=== PATIENT | male | born 1975 | race Caucasian/White ===

== ENCOUNTER 2017-08-09 00:16 | Emergency (ER) | payer MEDICARE ==
[2017-08-09 01:37] LABS: #Eosinphils 0.7 thou/uL (0.0-0.7); #Lymphocytes 1.5 thou/uL (1.20-3.40); #Monocytes 0.7 thou/uL (0.11-0.59); #Neutrophils 5.4 thou/uL (1.40-6.50); %Basophils 0.2 % (0.0-1.0); %Eosinophils 8.9 % (0.0-10.0); %Lymphocytes 18.5 % (21.0-51.0); %Neutrophils 64.4 % (42.0-75.0); Hemoglobin 8.6 g/dL (14.0-18.0); Mean Corpuscular Hemoglobin 21.1 pg (27.0-31.0); Mean Corpuscular Volume 72.7 fl (80.0-94.0); Mean Platelet Volume 10.8 fL (7.4-10.4); Platelet Count 222 thou/uL (130-400); Red Blood Cell (RBC) Count 4.07 mill/uL (4.70-6.10); White Blood Cell (WBC) Count 8.3 thou/uL (4.8-10.8)
[2017-08-09 01:41] LABS: INR-International Normal Ratio 1.6; Prothrombin Time 19.9 SEC (12.0-14.7)
[2017-08-09 01:52] LABS: ALT (SGPT) Less than 7 U/L (8-55); AST (SGOT) 14 U/L (5-34); Alkaline Phosphatase 66 U/L (40-150); Anion Gap 9 mmol/L (10-20); BUN (Urea Nitrogen) 11 mg/dL (8.9-20.6); Bilirubin, Total 0.3 mg/dL (0.2-1.2); CK (CPK) 24 U/L (30-200); Calc. Creatinine Clearance 0 mL/min (70-130); Carbon Dioxide 30 mmol/L (22-29); Chloride 100 mmol/L (98-107); Estimated GFR-MDRD Greater than 90; Globulin 4.6 g/dL (2.4-3.5); Glucose 209 mg/dL (70-105); Potassium 3.7 mmol/L (3.5-5.1); Protein, Total 7.6 g/dL (6.0-8.3); Sodium 135 mmol/L (136-145)
[2017-08-09 01:55] LABS: CKMB 0.3 ng/mL (0-6.6); Troponin I Less than 0.010 ng/mL (< 0.028)
[2017-08-09] MEDS ORDERED: Warfarin Sodium 5 MG TAB PO SCH (02:15)
--- NOTE | 2017-08-09 08:24 | RAD ---
CHEST 1 VIEW: Date: 08/09/17 HISTORY: 41-year-old male with history of dyspnea and congestion. FINDINGS: Heart size is at least upper range of normal. Bronchovascular markings are slightly prominent bilater ally with some mild vascular congestion. No confluent pneumonia, pleural effusion, or overt edema. Li ttle change from most recent prior study of 08/21/16. IMPRESSION: Bilateral vascular congestion with borderline heart size. No confluent pneumonia or overt edema. POS: [facility]
== END 2017-08-09 03:22 | disposition home or self-care (01) ==
LOC: ERS 00:16
DX: R09.89 Other specified symptoms and signs involving the circulatory and respiratory systems (principal); E66.01 Morbid (severe) obesity due to excess calories; E11.9 Type 2 diabetes mellitus without complications; I10 Essential (primary) hypertension; Z86.711 Personal history of pulmonary embolism; I87.8 Other specified disorders of veins; G47.30 Sleep apnea, unspecified; Z79.01 Long term (current) use of anticoagulants; Z79.84 Long term (current) use of oral hypoglycemic drugs; Z79.899 Other long term (current) drug therapy
CPT/HCPCS: 71045; 80053; 82553; 83880; 84484; 85025; 85610; 85730; 93005

== ENCOUNTER 2017-08-31 19:50 | Inpatient (IN) | payer MEDICARE ==
[2017-08-31 20:26] LABS: #Eosinphils 0.7 thou/uL (0.0-0.7); #Lymphocytes 1.3 thou/uL (1.20-3.40); #Monocytes 1.2 thou/uL (0.11-0.59); #Neutrophils 7.8 thou/uL (1.40-6.50); %Basophils 0.3 % (0.0-1.0); %Lymphocytes 11.7 % (21.0-51.0); Hemoglobin 8.6 g/dL (14.0-18.0); Mean Corpuscular HGB CONC 30.7 g/dL (32.0-36.0); Mean Corpuscular Hemoglobin 21.5 pg (27.0-31.0); Mean Corpuscular Volume 70.1 fL (78.0-98.0); Mean Platelet Volume 10.5 fL (7.4-10.4); Platelet Count 238 thou/uL (130-400); RBC Distribution Width 17.2 % (11.5-14.5); Red Blood Cell (RBC) Count 3.99 mill/uL (4.70-6.10)
--- NOTE | 2017-08-31 20:30 | RAD ---
PORTABLE CHEST ONE VIEW: Date: 08-31-17 Time: 8:21 p.m. History: Fever, dizziness, lightheadedness. FINDINGS/IMPRESSION: Comparison is made with exam of 08-09-17. The heart is enlarged. There is mild pulmonary vascular congestion. No lobar consolidation, pneumotho races or large effusions are seen. POS: [facility]
[2017-08-31] MEDS ORDERED: Piperacillin/Tazobactam 4.5 GM VIAL ONE (20:33)
[2017-08-31 20:45] LABS: ALT (SGPT) 10 U/L (8-55); AST (SGOT) 17 U/L (5-34); Albumin 3.1 g/dL (3.5-5.0); Alkaline Phosphatase 66 U/L (40-150); Anion Gap 13 mmol/L (10-20); BUN (Urea Nitrogen) 11 mg/dL (8.9-20.6); Bilirubin, Total 0.4 mg/dL (0.2-1.2); Calc. Creatinine Clearance 0 mL/min (70-130); Calcium 8.8 mg/dL (7.8-10.44); Carbon Dioxide 28 mmol/L (22-29); Chloride 95 mmol/L (98-107); Estimated GFR-MDRD Greater than 90; Globulin 5.5 g/dL (2.4-3.5); Glucose 262 mg/dL (70-105); Potassium 3.9 mmol/L (3.5-5.1); Protein, Total 8.6 g/dL (6.0-8.3); Sodium 132 mmol/L (136-145)
[2017-08-31 21:54] LABS: Bilirubin Negative (Negative); Blood, Urine Negative (Negative); Clarity TURBID (Clear); Glucose, Urine (Dipstick) Negative (Negative); Leukocyte Small (Negative); Nitrite Negative (Negative); Protein, Urine (Dipstick) Trace mg/dL (Neg-Trace); Specific Gravity, Urine 1.024 (1.002-1.036)
[2017-08-31 21:55] LABS: Bacteria/HPF None Seen HPF (None Seen); Hyaline Casts/LPF 0-3 HYALINE CAST LPF (0-3 Hyaline); Pathc Cast-AUWi Flag 0.29 (0-2.49); Squamous Epithelial 0-3 HPF (0-3)
[2017-09-01 00:13] LABS: Lactic Acid 1.2 mmol/L (0.5-2.2)
[2017-09-01 00:44] VITALS: BMI 82.3
[2017-09-01] MEDS ORDERED: Sodium Chloride 0.9% 1,000 ML IV SCH (00:45)
[2017-09-01] MEDS ORDERED: Dextrose 50% Abboject 50 ML SYRINGE SLOW IVP PRN ×2 (01:04→13:56)
[2017-09-01] MEDS ORDERED: Dextrose 5% in Water 1,000 ML IV PRN ×2 (01:04→13:56)
[2017-09-01] MEDS ORDERED: Ondansetron HCl/PF 4 MG/2 ML Vial IVP PRN (01:11)
[2017-09-01] MEDS ORDERED: Acetaminophen 325 MG TAB PO PRN (01:11)
[2017-09-01] MEDS ORDERED: HYDROcodone/Acetaminophen 10/325 mg Tablet PO PRN (01:11)
[2017-09-01] MEDS ORDERED: Ondansetron ODT 4 MG TAB PO PRN (01:11)
[2017-09-01] MEDS: Sodium Chloride 0.9% 1,000 ML IV SCH ×4 (01:25→22:20)
--- NOTE | 2017-09-01 01:32 | PDOC.FPRHP ---
- History of Present Illness Chief Complaint: RLE pain, fever History of Present Illness: 42 yo morbidly obese male with PMH of DMII, HTN, SHAAN on CPAP, OHS, lymphedema and prior DVT on coumadin presents for evaluation of fever on and off for the last 4 days with a high of 102 degress farenheit with associated worsening pain and erythema of RLE. Pt reports he had a fever that has been fluctuating between 101-102 over the last four days. He denies any other symptoms aside from b/l LE pain and associated erythema of RLE. Pt denies cp, sob, nvdc. Does report ough which he states is chronic and unchanged. ED Course: vancomycin 1 gram, zosyn 4.5 grams - Allergies/Adverse Reactions Allergies Allergy/AdvReac Type Severity Reaction Status Date / Time No Known Drug Allergies Allergy Unknown Verified 08/14/14 15:10 - Home Medications Medication Instructions Recorded Confirmed Type HYDROcodone Bit/APAP 10/325 [[place]] 1 tab PO Q6HR PRN 09/11/12 09/01/17 History metFORMIN [Glucophage] 1,000 mg PO BID-WM 09/11/12 09/01/17 History Pravastatin Sodium [Pravachol] 20 mg PO HS 08/14/14 09/01/17 History Acetaminophen [Tylenol Extra 500 mg PO 1200 09/01/17 09/01/17 History Strength] Acetaminophen [Tylenol Extra 500 mg PO QAM 09/01/17 09/01/17 History Strength] Cetirizine HCl [Zyrtec] 10 mg PO DAILY 09/01/17 09/01/17 History Furosemide [Lasix] 40 mg PO BID 09/01/17 09/01/17 History Gabapentin 1,200 mg PO TID 09/01/17 09/01/17 History Lisinopril 40 mg PO DAILY 09/01/17 09/01/17 History Pantoprazole [Protonix] 40 mg PO DAILY 09/01/17 09/01/17 History Warfarin Sodium 7.5 mg PO SEEPHYS 09/01/17 09/01/17 History Warfarin Sodium 10 mg PO SEEPHYS 09/01/17 09/01/17 History guaiFENesin [Cough Syrup] 10 ml PO Q4HR PRN 09/01/17 09/01/17 History - History PMHx: htn, DMII, SHAAN on cpap QHS, OHS, lymphedema, morbid obesity PSHx: None FHx:none Social: Denies tobacco, alcohol and drug use - Review of Systems General: reports: fever/chills. denies: weight/appetite/sleep changes, night sweats, fatigue Eyes: denies: vision changes ENT: reports: nasal congestion. denies: rhinorrhea Respiratory: reports: cough. denies: congestion, shortness of breath Cardiovascular: reports: edema. denies: chest pain, palpitation Gastrointestinal: denies: nausea, vomiting, diarrhea, constipation, abdominal pain Genitourinary: denies: incontinence, dysuria Skin: reports: itching, other (excoriations over trunk) Musculoskeletal: reports: swelling. denies: tenderness, arthritis/arthralgias Neurological: denies: numbness, syncope, weakness - Vital signs BP: 132/68 HR: 92 RR: 24 Tmax: 100.5 Pox: 98% on RA Wt: 295Kg - Physical Exam Constitutional: NAD, awake, alert and oriented, other (Morbidly obese) HEENT: normocephalic and atraumatic, PERRLA, EOMI, conjunctiva clear, no scleral icterus, grossly normal vision, grossly normal hearing Neck: supple, trachea midline, no JVD Chest: no-tender to palpation, other (excoriations over anterior chest and abdomen) Heart: RRR, normal S1/S2, pulses present, no edema (non pitting edema b/l LE), other (SURY 2/6) Lungs: CTAB, no respiratory distress, good air movement, no rales/rhonchi, no wheezing, no retractions Abdomen: soft, non-tender, bowel sounds present, no masses/distention Musculoskeletal: normal structure, normal tone Neurological: no focal deficit Skin: good turgor, capillary refill <2 seconds, no jaundice, other ( excoriations covering anterior trunk and upper extremities) Heme/Lymphatic: no unusual bruising or bleeding, no purpura, no petechia Psychiatric: normal mood and affect FMR H&P: Results - Labs Result Diagrams: 09/01/17 03:52 09/01/17 03:52 Lab results: WBC 11.0 thou/uL (4.8-10.8) H 08/31/17 20:07 Hgb 8.6 g/dL (14.0-18.0) L 08/31/17 20:07 Hct 28.0 % (42.0-52.0) L 08/31/17 20:07 MCV 70.1 fL (78.0-98.0) L 08/31/17 20:07 Plt Count 238 thou/uL (130-400) 08/31/17 20:07 Neutrophils % 71.0 % (42.0-75.0) 08/31/17 20:07 Sodium 132 mmol/L (136-145) L 08/31/17 20:07 Potassium 3.9 mmol/L (3.5-5.1) 08/31/17 20:07 Chloride 95 mmol/L (98-107) L 08/31/17 20:07 Carbon Dioxide 28 mmol/L (22-29) 08/31/17 20:07 BUN 11 mg/dL (8.9-20.6) 08/31/17 20:07 Creatinine 0.78 mg/dL (0.6-1.3) 08/31/17 20:07 Glucose 262 mg/dL (70-105) H 08/31/17 20:07 Lactic Acid 1.2 mmol/L (0.5-2.2) 08/31/17 23:51 Calcium 8.8 mg/dL (7.8-10.44) 08/31/17 20:07 Total Bilirubin 0.4 mg/dL (0.2-1.2) 08/31/17 20:07 AST 17 U/L (5-34) 08/31/17 20:07 ALT 10 U/L (8-55) 08/31/17 20:07 Alkaline Phosphatase 66 U/L (40-150) 08/31/17 20:07 Serum Total Protein 8.6 g/dL (6.0-8.3) H 08/31/17 20:07 Albumin 3.1 g/dL (3.5-5.0) L 08/31/17 20:07 Urine Ketones Negative mg/dL (Negative) 08/31/17 21:41 Urine Blood Negative (Negative) 08/31/17 21:41 Urine Nitrite Negative (Negative) 08/31/17 21:41 Ur Leukocyte Esterase Small (Negative) H 06/24/18 21:41 Urine RBC 4-6 HPF (0-3) 08/31/17 21:41 Urine WBC 4-6 HPF (0-3) H 08/31/17 21:41 Ur Squamous Epith Cells 0-3 HPF (0-3) 08/31/17 21:41 Urine Bacteria None Seen HPF (None Seen) 08/31/17 21:41 - EKG Interpretation EKG: NSR rate 100 - Radiology Interpretation Chest x-ray Status: report reviewed by me (enlarged heart) FMR H&P: A/P - Plan 1.Cellulitis -admit medical and continue broad spectrum abx, erythema edges marked and continue to monitor -am cbc and bmp 2.SHAAN -cont CPAP qhs per home setting in addition to nightly O2 3. DM II- home meds 4.Hx of PE- continue home Coumadin, check coags 5.Microcytic anemia- slowly worsening trend, will obtain iron studies 6.Htn- home meds 7. Lymphedema-lasix 40 BID 8.Hld-home statin 9.Chronic pain-will not give full dosages of his narcotics while he doesn't have his CPAP as he has hx of acute resp. failure 10.Morbid obesity-PT/OT consulted, has HH at home 11.DVT ppx-on coumadin 12: Code status full, discussed with pt at bedside Disposition/LOS: stable, >/= 2 days FMR H&P: Upper Level - Plan Date/Time: 09/01/17 0126 PCP: Chrissy Pt is a 42 yo M w/ PMH of morbid obesity, DM II, PE, SHAAN, htn who presents to ED with several day hx of leg pain and fever. Reports dizziness, productive cough (which has been ongoing for 6 mo-1 yr) and LLE pain worsening. Leg does appear red and family has marked the edges, does not appear to have spread. He also has a lot of excoriations all over his body from skin picking. He has a fever of 100.5 currently in ED and was higher around 102 when he came in. Has been trying to take Tylenol at home for fever which hasnt kept it down. Reportedly lives in an un-air conditioned home and was feeling cool when they took his temp several days ago but the leg pain hadnt started. Denies any other source of increased body pain, suffers from chronic pain related to obesity and takes norco. General: AOx3, morbidly obese, appears in no acute distress, appropriately dressed, groomed, appears approximate stated age HEENT: moist mucus membranes, no pharyngeal edema Cardiac: RRR, no murmurs, gallops, clicks or rubs Lungs: CTA, no wheezes, rales, rubs, rhonchi Abdomen: soft, non TTP, normoactive bs, Extremities: 1. Cellulitis- admit, medical, vanc an zosyn, will cover for pseudomonas as he is a diabetic, he is a high risk for infection with excoriations all over this body from skin picking, leg is the most likely source given appearance of the leg. Does have known hx of lymphedema of the legs and takes lasix which was recently doubled. 2. SHAAN- wears nightly O2 and forgot home CPAP, will see if RT will titrate and to bring tomorrow. He is very somnolent w/o his CPAP in the mornings 3. DM II- home meds, on metformin, reported last A1c around 7 4. Hx of PE- continue home Coumadin, check coags 5. Microcytic anemia- slowly worsening trend, will obtain iron studies 6. Htn- home meds 7. Lymphedema- as above 8. Hld-home statin 9. Chronic pain-will not give full dosages of his narcotics while he doesn't have his CPAP as he has hx of acute resp. failure 10. Morbid obesity-PT/OT consulted, has HH at home 8. DVT ppx-on coumadin I, Es Enriquez, have evaluated this patient and agree with findings/plan as outlined by Dr. Bocanegra. Pertinent changes/additions are listed here. Attending Addendum - Attending Addendum Date/Time: 09/01/17 3761 I personally evaluated the patient and discussed the management with Dr. Bocanegra. I agree with the History, Examination, Assessment and Plan documented above with any addition or exceptions noted below. Patient is admitted for cellulitis with SIRS for IV antibiotic coverage. Has several other chronic conditions including warfarin therapy which is subtherapeutic. Dose recently adjusted. Although he carreis diagosis of lymphedema, it is unclear how this was diagnosed or what is causing it. My examination of is legs is consistent with choric venous stasis and obesity as well as the acaute cellulitis.
--- NOTE | 2017-09-01 01:35 | PDOC.FPRHP ---
- Allergies/Adverse Reactions Allergies Allergy/AdvReac Type Severity Reaction Status Date / Time No Known Drug Allergies Allergy Unknown Verified 08/14/14 15:10 - Home Medications Medication Instructions Recorded Confirmed Type HYDROcodone Bit/APAP 10/325 [[place]] 1 tab PO Q6HR PRN 09/11/12 08/21/16 History metFORMIN [Glucophage] 1,000 mg PO BID-WM 09/11/12 08/21/16 History Omeprazole 20 mg PO DAILY 02/25/13 08/21/16 History Amlodipine Besylate [amLODIPine 10 mg PO DAILY 08/14/14 08/21/16 History Besylate] Pravastatin Sodium [Pravachol] 20 mg PO HS 08/14/14 08/21/16 History Lisinopril [Zestril] 5 mg PO DAILY #60 tab 08/24/16 Rx Furosemide [Lasix] 40 mg PO BID 09/01/17 09/01/17 History Warfarin Sodium [Coumadin] 7.5 mg PO SEEPHYS 09/01/17 09/01/17 History - History PMHx: PSHx: FHx: Social: - Vital signs BP: [] HR: [] RR: [] Tmax: [] Pox: []% on [] Wt: [] FMR H&P: Results - Labs Result Diagrams: 08/31/17 20:07 08/31/17 20:07 Lab results: WBC 11.0 thou/uL (4.8-10.8) H 08/31/17 20:07 Hgb 8.6 g/dL (14.0-18.0) L 08/31/17 20:07 Hct 28.0 % (42.0-52.0) L 08/31/17 20:07 MCV 70.1 fL (78.0-98.0) L 08/31/17 20:07 Plt Count 238 thou/uL (130-400) 08/31/17 20:07 Neutrophils % 71.0 % (42.0-75.0) 08/31/17 20:07 Sodium 132 mmol/L (136-145) L 08/31/17 20:07 Potassium 3.9 mmol/L (3.5-5.1) 08/31/17 20:07 Chloride 95 mmol/L (98-107) L 08/31/17 20:07 Carbon Dioxide 28 mmol/L (22-29) 08/31/17 20:07 BUN 11 mg/dL (8.9-20.6) 08/31/17 20:07 Creatinine 0.78 mg/dL (0.6-1.3) 08/31/17 20:07 Glucose 262 mg/dL (70-105) H 08/31/17 20:07 Lactic Acid 1.2 mmol/L (0.5-2.2) 08/31/17 23:51 Calcium 8.8 mg/dL (7.8-10.44) 08/31/17 20:07 Total Bilirubin 0.4 mg/dL (0.2-1.2) 08/31/17 20:07 AST 17 U/L (5-34) 08/31/17 20:07 ALT 10 U/L (8-55) 08/31/17 20:07 Alkaline Phosphatase 66 U/L (40-150) 08/31/17 20:07 Serum Total Protein 8.6 g/dL (6.0-8.3) H 08/31/17 20:07 Albumin 3.1 g/dL (3.5-5.0) L 08/31/17 20:07 Urine Ketones Negative mg/dL (Negative) 08/31/17 21:41 Urine Blood Negative (Negative) 08/31/17 21:41 Urine Nitrite Negative (Negative) 08/31/17 21:41 Ur Leukocyte Esterase Small (Negative) H 08/31/17 21:41 Urine RBC 4-6 HPF (0-3) 08/31/17 21:41 Urine WBC 4-6 HPF (0-3) H 08/31/17 21:41 Ur Squamous Epith Cells 0-3 HPF (0-3) 08/31/17 21:41 Urine Bacteria None Seen HPF (None Seen) 08/31/17 21:41 FMR H&P: Upper Level - Plan Date/Time: 09/01/17 0127 I, [], have evaluated this patient and agree with findings/plan as outlined by regulatory affairs intern resident. Pertinent changes/additions are listed here.
[2017-09-01] MEDS ORDERED: guaiFENesin 100 MG/5 ML UDCUP PO PRN (02:32)
[2017-09-01] MEDS: Diabetic Tussin 200 MG/10 ML UDCUP PO PRN ×4 (02:36→23:22)
[2017-09-01] MEDS ORDERED: Piperacillin/Tazobactam 4.5 GM in Sodium Chloride 0.9% 100 ML IVPB SCH (03:00)
[2017-09-01 05:48] LABS: INR-International Normal Ratio 1.6; PTT 40.4 SEC (22.9-36.1); Prothrombin Time 19.1 SEC (12.0-14.7)
[2017-09-01 05:52] LABS: Anion Gap 13 mmol/L (10-20); BUN (Urea Nitrogen) 10 mg/dL (8.9-20.6); Calc. Creatinine Clearance 572 mL/min (70-130); Calcium 8.7 mg/dL (7.8-10.44); Carbon Dioxide 28 mmol/L (22-29); Chloride 97 mmol/L (98-107); Estimated GFR-MDRD Greater than 90; Glucose 242 mg/dL (70-105); Iron 22 ug/dL (65-175); Iron Binding Capacity, Total 245 mcg/dL (261-462); Potassium 3.9 mmol/L (3.5-5.1); Sodium 134 mmol/L (136-145); Transferrin, Serum 196 mg/dL (174-364)
[2017-09-01 06:45] LABS: #Eosinphils 0.5 thou/uL (0.0-0.7); #Lymphocytes 1.5 thou/uL (1.20-3.40); #Monocytes 1.2 thou/uL (0.11-0.59); #Neutrophils 7.4 thou/uL (1.40-6.50); %Basophils 0.1 % (0.0-1.0); %Eosinophils 4.9 % (0.0-10.0); %Lymphocytes 14.2 % (21.0-51.0); %Monocytes 10.9 % (0.0-10.0); Hemoglobin 8.1 g/dL (14.0-18.0); Mean Corpuscular HGB CONC 29.9 g/dL (32.0-36.0); Mean Corpuscular Hemoglobin 21.5 pg (27.0-31.0); Mean Corpuscular Volume 71.7 fL (78.0-98.0); Mean Platelet Volume 10.7 fL (7.4-10.4); Platelet Count 214 thou/uL (130-400); RBC Distribution Width 17.1 % (11.5-14.5); Red Blood Cell (RBC) Count 3.76 mill/uL (4.70-6.10); White Blood Cell (WBC) Count 10.6 thou/uL (4.8-10.8)
[2017-09-01 06:55] LABS: Anisocytosis SLIGHT = 6-15 cells (100X) (0-5/hpf); Hypochromia SLIGHT = 6-15 cells (100X) (0-5/hpf); MDiff Complete? YES; Microcytosis SLIGHT = 6-15 cells (100X) (0-5/hpf); Polychromasia SLIGHT = 2-3 cells (100X) (0-2/hpf)
[2017-09-01] MEDS ORDERED: Vancomycin HCl 1.5 GM in Sodium Chloride 0.9% 500 ML IVPB SCH (09:00)
[2017-09-01] MEDS ORDERED: Famotidine 20 MG TAB PO SCH (09:00)
[2017-09-01] MEDS: metFORMIN 500 MG TAB PO SCH ×2 (09:18→16:44)
[2017-09-01] MEDS: Loratadine 10 MG TAB PO SCH (09:19)
[2017-09-01] MEDS: Lisinopril 20 MG TAB PO SCH (09:19)
[2017-09-01] MEDS: Furosemide 40 MG TAB PO SCH ×2 (09:19→14:05)
[2017-09-01] MEDS: Gabapentin 400 MG CAP PO SCH ×3 (09:19→20:04)
[2017-09-01] MEDS: Acetaminophen 500 MG TAB PO SCH ×2 (09:19→12:25)
[2017-09-01] MEDS: HYDROcodone/Acetaminophen 10/325 mg Tablet PO PRN ×2 (09:22→20:05)
[2017-09-01] MEDS: Piperacillin/Tazobactam 4.5 GM in Sodium Chloride 0.9% 100 ML IVPB SCH ×3 (12:24→22:17)
[2017-09-01] MEDS ORDERED: Enoxaparin Sodium 120 MG/0.8 ML SYRINGE SC SCH (13:15)
[2017-09-01] MEDS: HumaLOG 300 UNITS/3 ML VIAL SC PRN ×2 (14:05→16:47)
[2017-09-01] MEDS: Nystatin Powder 15 GM BOT TOP PRN (16:45)
[2017-09-01] MEDS ORDERED: Warfarin Sodium 7.5 MG TAB PO SCH (17:00)
[2017-09-01] MEDS: hydrOXYzine 25 MG TAB PO PRN (20:04)
[2017-09-01] MEDS: Pravastatin Sodium 20 MG TAB PO SCH (20:05)
[2017-09-01] MEDS: Enoxaparin Sodium 120 MG/0.8 ML SYRINGE SC SCH (20:06)
[2017-09-01] MEDS: Enoxaparin Sodium 30 MG/0.3 ML SYRINGE SC SCH (20:06)
[2017-09-02] MEDS: Piperacillin/Tazobactam 4.5 GM in Sodium Chloride 0.9% 100 ML IVPB SCH ×4 (05:38→23:52)
[2017-09-02] MEDS: hydrOXYzine 25 MG TAB PO PRN ×2 (05:38→20:28)
[2017-09-02] MEDS: Diabetic Tussin 200 MG/10 ML UDCUP PO PRN ×4 (05:38→21:13)
[2017-09-02] MEDS: HYDROcodone/Acetaminophen 10/325 mg Tablet PO PRN ×4 (05:39→22:21)
[2017-09-02] MEDS: HumaLOG 300 UNITS/3 ML VIAL SC PRN ×3 (05:39→20:30)
[2017-09-02 06:11] LABS: #Eosinphils 0.9 thou/uL (0.0-0.7); #Lymphocytes 1.7 thou/uL (1.20-3.40); #Monocytes 0.7 thou/uL (0.11-0.59); #Neutrophils 6.9 thou/uL (1.40-6.50); %Basophils 0.4 % (0.0-1.0); %Eosinophils 8.4 % (0.0-10.0); %Lymphocytes 16.2 % (21.0-51.0); Hemoglobin 8.5 g/dL (14.0-18.0); Mean Corpuscular HGB CONC 29.5 g/dL (32.0-36.0); Mean Corpuscular Hemoglobin 21.4 pg (27.0-31.0); Mean Corpuscular Volume 72.4 fL (78.0-98.0); Mean Platelet Volume 10.3 fL (7.4-10.4); Platelet Count 208 thou/uL (130-400); RBC Distribution Width 17.4 % (11.5-14.5); White Blood Cell (WBC) Count 10.2 thou/uL (4.8-10.8)
[2017-09-02 06:25] LABS: Anion Gap 12 mmol/L (10-20); BUN (Urea Nitrogen) 8 mg/dL (8.9-20.6); Calc. Creatinine Clearance 557 mL/min (70-130); Calcium 8.9 mg/dL (7.8-10.44); Carbon Dioxide 30 mmol/L (22-29); Chloride 99 mmol/L (98-107); Estimated GFR-MDRD Greater than 90; Glucose 198 mg/dL (70-105); Potassium 4.1 mmol/L (3.5-5.1); Sodium 137 mmol/L (136-145)
[2017-09-02 06:27] LABS: INR-International Normal Ratio 1.6; Prothrombin Time 19.2 SEC (12.0-14.7)
--- NOTE | 2017-09-02 06:59 | PDOC.FM ---
- Subjective Subjective: Mr. Balderas is feeling well this morning. He reports he slept well with CPAP and ate dinner well last night. I spoke to patient extensively yesterday about risks of bleeding with any anticoagulation, particularly with bridging him with lovenox and coumadin. He would prefer to take the risk of spontaneous bleed (we also discussed fall risk) as opposed to increased risk of DVT/PE. I stressed importance of fall precautions but also ongoing risk of spontaneous hemorrhage and he acknowledges and prefers to proceed with anticoagulation. We also discussed inpatient rehab and he plans to discuss further with his this morning in preparation for possible d/c tomorrow. - Objective MAR Reviewed: Yes Vital Signs & Weight: Vital Signs (12 hours) Temp Pulse Resp BP Pulse Ox 09/01/17 20:00 98.5 F 86 20 126/80 97 09/01/17 19:45 98.5 F 86 20 97 I&O: 08/31/17 09/01/17 09/02/17 06:59 06:59 06:59 Intake Total 1218 6893 Output Total 6550 Balance 1218 343 Result Diagrams: 09/02/17 05:49 09/02/17 05:48 <Jeny Bagley E - Last Filed: 09/02/17 11:26> - Objective Vital Signs & Weight: Vital Signs (12 hours) Temp Pulse Resp BP BP Pulse Ox 09/02/17 10:08 155/77 H 09/02/17 08:00 98.6 F 79 18 91 L 09/02/17 07:35 98.6 F 79 18 155/77 H 91 L I&O: 09/01/17 09/02/17 09/03/17 06:59 06:59 06:59 Intake Total 1218 6893 Output Total 6550 Balance 1218 343 Result Diagrams: 09/02/17 05:49 09/02/17 05:48 <Sammy Mena - Last Filed: 09/02/17 11:45> Phys Exam - Physical Examination Constitutional: NAD HEENT: moist MMs, sclera anicteric Neck: supple Respiratory: no wheezing, clear to auscultation bilateral Cardiovascular: RRR faint systolic murmur Gastrointestinal: soft, non-tender, positive bowel sounds venous stasis changes BLE, worse on L than R Neurological: non-focal, moves all 4 limbs Psychiatric: normal affect, A&O x 3 Deviation from normal: diffuse lesions on abdomen and UE from picking, no focal increased erythema <Jeny Bagley - Last Filed: 09/02/17 11:26> Dx/Plan (1) Cellulitis of lower extremity Code(s): L03.119 - CELLULITIS OF UNSPECIFIED PART OF LIMB Status: Acute (2) GERD (gastroesophageal reflux disease) Code(s): K21.9 - GASTRO-ESOPHAGEAL REFLUX DISEASE WITHOUT ESOPHAGITIS Status: Chronic (3) Hypertension Code(s): I10 - ESSENTIAL (PRIMARY) HYPERTENSION Status: Chronic QualifierTitle: Hypertension type: essential hypertension Qualified Code( s): I10 - Essential (primary) hypertension (4) Morbid obesity Code(s): E66.01 - MORBID (SEVERE) OBESITY DUE TO EXCESS CALORIES Status: Chronic (5) SHAAN (obstructive sleep apnea) Code(s): G47.33 - OBSTRUCTIVE SLEEP APNEA (ADULT) (PEDIATRIC) Status: Chronic (6) Pulmonary embolism Code(s): I26.99 - OTHER PULMONARY EMBOLISM WITHOUT ACUTE COR PULMONALE Status : Chronic QualifierTitle: Chronicity: chronic (7) Type 2 diabetes mellitus Status: Chronic QualifierTitle: Diabetes mellitus corporate relations director insulin use: without corporate relations director use Diabetes mellitus complication status: with neurologic complications Diabetes mellitus complication detail: with polyneuropathy Qualified Code(s): E11.42 - Type 2 diabetes mellitus with diabetic polyneuropathy - Plan Plan: 42 yo M with numerous comorbidities here with sepsis 2/2 LLE cellulitis 1. Sepsis 2/2 LLE Cellulitis - Vanc and zosyn - Blood culture pending - Vanc trough elevated however was drawn at same time vanc running so repeat is pending - S/p adequate fluid resuscitation, will d/c and encourage PO hydration 2. SHAAN - Home CPAP 3. T2DM - DM II- home meds, on metformin, reported last A1c around 7 - Mild SSI and ACHS accuchecks 4. Hx of PE - Continue coumadin - Subtherapeutic INR - Started therapeutic lovenox, anti Xa also subtherapeutic - Will redose both and continue to monitor while he is in house 5. Microcytic anemia - Iron studies show low iron and TIBC - Ferritin in the 50s - Stable - OP follow-up 6. HTN - Lisinopril - Lasix 7. HLD - pravastatin 8. Chronic pain and peripheral neuropathy - Home norco and gabapentin 9. Morbid obesity - PT/OT consulted - Deconditioning with multiple recent hospitalizations - Consulted PT/OT, would benefit greatly from inpatient rehab as reportedly home grace not able to help very much with these services 10. Venous stasis and chronic edema/lymphedema - Continue lasix - Electrolyte monitoring 11. Itching with diffuse excoriations - Likely related to boredom and possible anxiety - Atarax very helpful per patient 12. DVT ppx: Coumadin and therapeutic lovenox with hx PE, upward titration ongoing Dispo: Pending blood cultures, possible D/C to home or inpatient rehab tomorrow <Jeny Bagley - Last Filed: 09/02/17 11:26> Attending Addendum - Attending Addendum Date/Time: 09/02/17 2297 I personally evaluated the patient and discussed the management with Dr. Bagley. I agree with the History, Examination, Assessment and Plan documented above with any addition or exceptions noted below. Patient with some improvement in his erythema today. Will need to continue abx and have consulted ID for help with corporate relations director mgmt. His vanc trough came back elevated but it was apparently drawn at inappropriate time. Vanc is being held until we can ascertain for sure what her current levels are. Continue on lovenox , though may need increase in dose due to low anti Xa levels. May need augmentation of coumadin to help get his INR appropriate. We are in talks of hopefully getting patient placed at rehab as he is severely deconditioned along with his morbid obesity. <Sammy Mena - Last Filed: 09/02/17 11:45>
[2017-09-02 07:07] LABS: Heparin Anti 10a (LMWH) 0.2 IU/mL
[2017-09-02 09:09] LABS: Vancomycin, Trough 18.4 ug/mL
[2017-09-02] MEDS: Sodium Chloride 0.9% 1,000 ML IV SCH ×2 (10:06→17:28)
[2017-09-02] MEDS: Gabapentin 400 MG CAP PO SCH ×3 (10:07→20:28)
[2017-09-02] MEDS: metFORMIN 500 MG TAB PO SCH ×2 (10:07→16:03)
[2017-09-02] MEDS: Acetaminophen 500 MG TAB PO SCH ×2 (10:07→13:36)
[2017-09-02] MEDS: Loratadine 10 MG TAB PO SCH (10:08)
[2017-09-02] MEDS: Furosemide 40 MG TAB PO SCH ×2 (10:08→13:37)
[2017-09-02] MEDS: Enoxaparin Sodium 120 MG/0.8 ML SYRINGE SC SCH (10:08)
[2017-09-02] MEDS: Lisinopril 20 MG TAB PO SCH (10:08)
[2017-09-02] MEDS: Enoxaparin Sodium 30 MG/0.3 ML SYRINGE SC SCH (10:10)
[2017-09-02] MEDS ORDERED: Enoxaparin Sodium 30 MG/0.3 ML SYRINGE SC SCH (11:00)
[2017-09-02] MEDS: Vancomycin HCl 1.75 GM in Sodium Chloride 0.9% 500 ML IVPB SCH ×2 (13:37→20:28)
[2017-09-02] MEDS: Nystatin Powder 15 GM BOT TOP PRN (16:02)
[2017-09-02] MEDS ORDERED: Warfarin Sodium 10 MG TAB PO SCH ×2 (17:00)
[2017-09-02] MEDS: Pravastatin Sodium 20 MG TAB PO SCH (20:28)
[2017-09-02] MEDS ORDERED: Enoxaparin Sodium 100 MG/ML SYRINGE SC SCH (21:00)
[2017-09-03] MEDS ORDERED: Enoxaparin Sodium 120 MG/0.8 ML SYRINGE SC SCH ×3 (00:55→09:00)
[2017-09-03 03:29] LABS: INR-International Normal Ratio 1.6; Prothrombin Time 19.5 SEC (12.0-14.7)
[2017-09-03 03:37] LABS: Anion Gap 12 mmol/L (10-20); BUN (Urea Nitrogen) 8 mg/dL (8.9-20.6); Calc. Creatinine Clearance 614 mL/min (70-130); Calcium 8.7 mg/dL (7.8-10.44); Carbon Dioxide 32 mmol/L (22-29); Chloride 98 mmol/L (98-107); Estimated GFR-MDRD Greater than 90; Glucose 164 mg/dL (70-105); Potassium 3.9 mmol/L (3.5-5.1); Sodium 138 mmol/L (136-145)
[2017-09-03] MEDS: Piperacillin/Tazobactam 4.5 GM in Sodium Chloride 0.9% 100 ML IVPB SCH ×2 (04:03→10:44)
[2017-09-03] MEDS: Sodium Chloride 0.9% 1,000 ML IV SCH ×2 (04:04→12:58)
[2017-09-03 04:19] LABS: Band 7 % (5-11); Eosinophils 3 % (0-10); Lymphocytes 18 % (21-51); MDiff Complete? YES; Mean Corpuscular HGB CONC 29.1 g/dL (32.0-36.0); Mean Corpuscular Hemoglobin 21.2 pg (27.0-31.0); Mean Corpuscular Volume 72.7 fL (78.0-98.0); Mean Platelet Volume 11.1 fL (7.4-10.4); Monocytes 4 % (0-10); Myelocyte 1 % (0-0); Neutrophil 67 % (42-75); Platelet Count 188 thou/uL (130-400); RBC Distribution Width 17.4 % (11.5-14.5); Red Blood Cell (RBC) Count 3.76 mill/uL (4.70-6.10); White Blood Cell (WBC) Count 9.2 thou/uL (4.8-10.8)
[2017-09-03] MEDS: Vancomycin HCl 1.75 GM in Sodium Chloride 0.9% 500 ML IVPB SCH ×2 (05:59→12:58)
[2017-09-03] MEDS: hydrOXYzine 25 MG TAB PO PRN ×2 (06:10→15:37)
[2017-09-03] MEDS: Diabetic Tussin 200 MG/10 ML UDCUP PO PRN (06:10)
[2017-09-03] MEDS: HYDROcodone/Acetaminophen 10/325 mg Tablet PO PRN ×3 (06:11→15:37)
--- NOTE | 2017-09-03 06:42 | PDOC.FM ---
- Subjective Subjective: Mr. Balderas is feeling well this morning and agreeable to discharge to inpatient rehab. He has no concerns or complaints this morning. - Objective MAR Reviewed: Yes Vital Signs & Weight: Vital Signs (12 hours) Temp Pulse Resp BP Pulse Ox 09/02/17 20:00 98.2 F 84 20 141/81 H 96 09/02/17 19:43 98.2 F 84 20 96 I&O: 09/01/17 09/02/17 09/03/17 06:59 06:59 06:59 Intake Total 1218 6893 4788 Output Total 6550 1650 Balance 0992 194 3603 Result Diagrams: 09/03/17 01:16 09/03/17 01:16 <Jeny Bagley E - Last Filed: 09/03/17 11:21> - Objective Vital Signs & Weight: Vital Signs (12 hours) Temp Pulse Resp BP BP Pulse Ox 09/03/17 08:23 153/83 H 09/03/17 08:00 98.5 F 76 16 97 09/03/17 07:18 98.5 F 76 16 153/83 H 97 I&O: 09/02/17 09/03/17 09/04/17 06:59 06:59 06:59 Intake Total 6893 4788 Output Total 6550 1650 Balance 343 3138 Result Diagrams: 09/03/17 01:16 09/03/17 01:16 <Emmett Douglas A - Last Filed: 09/03/17 14:13> Phys Exam - Physical Examination Constitutional: NAD HEENT: moist MMs, sclera anicteric Neck: supple Respiratory: no wheezing, clear to auscultation bilateral Cardiovascular: RRR faint systolic murmur Gastrointestinal: soft, non-tender, no distention, positive bowel sounds persistent non-pitting edema vs. venous stasis Neurological: non-focal, moves all 4 limbs Psychiatric: normal affect, A&O x 3 Skin: cap refill <2 seconds Deviation from normal: erythema in LLE stable, improving <Jeny Bagley E - Last Filed: 09/03/17 11:21> Dx/Plan (1) Cellulitis of lower extremity Code(s): L03.119 - CELLULITIS OF UNSPECIFIED PART OF LIMB Status: Acute (2) GERD (gastroesophageal reflux disease) Code(s): K21.9 - GASTRO-ESOPHAGEAL REFLUX DISEASE WITHOUT ESOPHAGITIS Status: Chronic (3) Hypertension Code(s): I10 - ESSENTIAL (PRIMARY) HYPERTENSION Status: Chronic QualifierTitle: Hypertension type: essential hypertension Qualified Code( s): I10 - Essential (primary) hypertension (4) Morbid obesity Code(s): E66.01 - MORBID (SEVERE) OBESITY DUE TO EXCESS CALORIES Status: Chronic (5) SHAAN (obstructive sleep apnea) Code(s): G47.33 - OBSTRUCTIVE SLEEP APNEA (ADULT) (PEDIATRIC) Status: Chronic (6) Pulmonary embolism Code(s): I26.99 - OTHER PULMONARY EMBOLISM WITHOUT ACUTE COR PULMONALE Status : Chronic QualifierTitle: Chronicity: chronic (7) Type 2 diabetes mellitus Status: Chronic QualifierTitle: Diabetes mellitus residential insulin use: without residential use Diabetes mellitus complication status: with neurologic complications Diabetes mellitus complication detail: with polyneuropathy Qualified Code(s): E11.42 - Type 2 diabetes mellitus with diabetic polyneuropathy - Plan Plan: 42 yo M with numerous comorbidities here with sepsis 2/2 LLE cellulitis 1. Sepsis 2/2 LLE Cellulitis - Vanc and zosyn - Blood culture negative - Vanc trough appropriate, 2nd pending this evening - Will plan to transition to keflex and bactrim for total of 10 days - S/p adequate fluid resuscitation, encourage PO hydration 2. SHAAN - Home CPAP 3. T2DM - DM II- home meds, on metformin, reported last A1c around 7 - Mild SSI and ACHS accuchecks 4. Hx of PE - Continue upward titration of coumadin - Subtherapeutic INR - Started therapeutic lovenox, anti Xa therapeutic this morning - Will increase coumadin to 10mg daily. Will need INR monitoring and D/C of lovenox upon therapeutic INR of 2-3 5. Microcytic anemia - Iron studies show low iron and TIBC - Ferritin in the 50s - Stable - OP follow-up - Will start iron 6. HTN - Lisinopril - Lasix 7. HLD - pravastatin 8. Chronic pain and peripheral neuropathy - Home norco and gabapentin 9. Morbid obesity - PT/OT consulted - Deconditioning with multiple recent hospitalizations - Consulted PT/OT, would benefit greatly from inpatient rehab as reportedly home grace not able to help very much with these services 10. Venous stasis and chronic edema/lymphedema - Continue lasix - Electrolyte monitoring 11. Itching with diffuse excoriations - Likely related to boredom and possible anxiety - Atarax very helpful per patient 12. DVT ppx: Coumadin and therapeutic lovenox with hx PE, upward titration ongoing Dispo: Will plan for discharge to inpatient rehab today <Jeny Bagley - Last Filed: 09/03/17 11:21> Attending Addendum - Attending Addendum Date/Time: 09/03/17 2643 I personally evaluated the patient and discussed the management with Dr. Bagley. I agree with the History, Examination, Assessment and Plan documented above with any addition or exceptions noted below. <Emmett Douglas - Last Filed: 09/03/17 14:13>
[2017-09-03 07:21] VITALS: BP 153/83; TEMP 98.5
[2017-09-03] MEDS: Gabapentin 400 MG CAP PO SCH ×2 (08:21→14:01)
[2017-09-03] MEDS: metFORMIN 500 MG TAB PO SCH (08:21)
[2017-09-03] MEDS: Loratadine 10 MG TAB PO SCH (08:22)
[2017-09-03] MEDS: Furosemide 40 MG TAB PO SCH ×2 (08:22→14:01)
[2017-09-03] MEDS: Lisinopril 20 MG TAB PO SCH (08:23)
[2017-09-03] MEDS: Acetaminophen 500 MG TAB PO SCH ×2 (08:24→12:08)
[2017-09-03] MEDS ORDERED: Enoxaparin Sodium 60 MG/0.6 ML SYRINGE SC SCH (09:00)
--- NOTE | 2017-09-03 14:05 | ULT ---
BILATERAL LOWER EXTREMITY VENOUS DOPPLER WITH SPECTRAL ANALYSIS AND COLOR FLOW EVALUATION: 09/03/2017 HISTORY: Bilateral lower extremity edema, as well as bilateral lower extremity leg redness. FINDINGS: Perez-scale, color-flow, Doppler evaluation, and spectral analysis of the bilateral lower extremity ve nous structures is performed with 2D imaging. The bilateral lower extremity common femoral, superfic ial femoral, popliteal, posterior tibial, and most proximal greater saphenous and profunda femoral ve ins are imaged. The proximal and distal left superficial femoral veins are not visualized by perez scale imaging due t o the depth of the vein, in relation to the skin surface and, as a result, a nonocclusive DVT at this level could not be excluded. There is also limited evaluation of the right superficial femoral vein and each popliteal vein, again related to the depth of the venous structures in relation to the skin surface. Normal flow is seen within these venous structures, although complete lumen compressibilit y is unable to be determined. There is otherwise normal lumen compressibility, flow, and augmentation in the remaining visualized d eep venous structures of the bilateral lower extremities. IMPRESSION: Nonvisualization of the bilateral superficial femoral veins, as well as limited evaluation of the rig ht lower extremity popliteal vein, which limits evaluation for a nonocclusive deep venous thrombosis at these levels; however, there is no evidence of an occlusive deep venous thrombosis at these levels , as there is flow demonstrated. There is otherwise no evidence of a deep venous thrombosis involvin g the visualized deep venous structures of the bilateral lower extremities. POS: [facility]
[2017-09-03] MEDS ORDERED: Warfarin Sodium 10 MG TAB PO SCH (17:00)
--- NOTE | 2017-09-04 12:41 | DIS-2 ---
DATE OF ADMISSION: 09/01/2017 DATE OF DISCHARGE: 09/03/2017 RESIDENT: Jeny Bagley MD ADMITTING ATTENDING: Emmett Douglas MD DISCHARGE ATTENDING: Emmett Douglas MD CONSULTATION: None. PRIMARY DIAGNOSIS: Sepsis secondary to left lower extremity cellulitis. SECONDARY DIAGNOSES: 1. Obstructive sleep apnea, on home CPAP. 2. Type 2 diabetes mellitus. 3. History of clinically diagnosed pulmonary embolism. 4. Microcytic anemia. 5. Hypertension. 6. Hyperlipidemia. 7. Chronic pain and peripheral neuropathy. 8. Morbid obesity. 9. Venous stasis and chronic edema/lymphedema. 10. Itching with diffuse excoriations. IMAGIN. Chest x-ray (08/31/2017): The heart is enlarged. There is mild pulmonary vascular congestion. No lobar consolidation, pneumothoraces, or large effusions were seen. 2. Venogram (09/03/2017): Nonvisualization of bilateral superficial femoral veins as well as limite d evaluation of the right lower extremity popliteal vein, which limits evaluation for a nonocclusive DVT at these levels; however, there is no evidence of an occlusive DVT at these levels as there is fl ow demonstrated. There is otherwise no evidence of DVT involving the visualized deep venous structur es of the bilateral lower extremities. HISTORY OF PRESENT ILLNESS/HOSPITAL COURSE: Mr. Balderas presented from home for complaint of worseni ng lower extremity pain and fevers. He was admitted as having met sepsis criteria with a diagnosis o f lower extremity cellulitis. Blood cultures were performed as well as starting him on IV vancomycin and Zosyn. He continued to improve throughout his first 2 days here and has remained afebrile. His vancomycin was found to be therapeutic and blood cultures were negative. His hospital stay was comp licated by difficulty in achieving therapeutic anticoagulation. He is on Coumadin chronically at [facility] with a historically hard to control INR secondary to noncompliance with diet and poor followup. Th erefore, while he was here, he was started on therapeutic Lovenox, which was titrated to an appropria te anti-Xa level. Upon discharge, he is going to inpatient rehabilitation as he has had numerous hos pitalizations and has deconditioned for me and there is concern from family about him being able to f unction at home. He is being discharged on both Coumadin and therapeutic Lovenox, of which the risks have been discussed with him for things such as spontaneous bleeding. He also remains at a higher r isk for DVT with an elevated D-dimer of 0.46 and inability to fully visualize his lower extremity lauren p venous structures. Therefore, at this time, it was recommended that he continue with anticoagulati on, which the decision was made with this patient. He should plan to follow up closely with Dr. Nitin Lee who he has seen in the past regarding the pulmonary embolism for determination of how long he should remain on this anticoagulation. At this time, he is stable for discharge on p.o. antibioti cs to an inpatient rehab. The remainder of his medical conditions remained stable throughout his hos pitalization and he is being discharged medications with the addition of antibiotics and ongoin g titration of anticoagulation. DISCHARGE MEDICATIONS: 1. Keflex 500 mg p.o. q.6 hours x7 days. 2. Lovenox 180 mg subcu q.12 hours. 3. Hydroxyzine 25 mg p.o. q.6 hours p.r.n. itching. 3. Nystatin powder 1 gram topically as needed p.r.n. evidence of fungal infection. 4. Bactrim double strength 1 tab p.o. b.i.d. x7 days. 5. Warfarin 10 mg p.o. 1700 hours. 5. Timber 10/325, one tab q.6 hours p.r.n. 6. Metformin 1000 mg p.o. b.i.d. 7. Pravastatin 20 mg p.o. at bedtime. 8. Gabapentin 1200 mg p.o. t.i.d. 9. Protonix 40 mg p.o. daily. 10. Zyrtec 10 mg p.o. daily. 11. Lisinopril 40 mg p.o. daily. 12. Tylenol 500 mg p.o. q.a.m. and noon. 13. Guaifenesin 10 mg p.o. q.4 hours p.r.n. 13. Lasix 40 mg p.o. b.i.d. DISCONTINUED MEDICATION: Alternating doses of warfarin 10 and 7.5 mg tablets as he was changed to 10 mg daily. DISCHARGE INSTRUCTIONS: 1. Location: Inpatient rehabilitation. 2. Diet: Consistent carbohydrate, heart healthy. 3. Activity: As tolerated with fall precautions. 4. Followup: With Dr. Lowe within 1 week of discharge from inpatient rehabilitation as well as Dr Javed Lee as soon as possible for anticoagulation followup.
--- NOTE | 2017-09-04 16:13 | PQF ---
[employer] Crystal Reports Winform Viewer CODEY HAMILTON GABRIEL MD [id number] [id number] CLINICAL DOCUMENTATION CLARIFICATION FORM: POST DISCHARGE Addendum to original discharge summary date: ____ Late entry note date: __ Please exercise your independent, professional judgment in responding to the clarification form. Clinical indicators are provided on the bottom of this form for your review. PLEASE CLARIFY THE DIAGNOSIS OF SEPSIS, NO DISCHARGE SUMMARY OF 09/04. PROGRESS NOTE -09/03 SEPSIS 2/ LLE CELLULITIS. DISCHARGE SUMMARY WILL REQUIRE THE DIAGNOSIS IF TREATED/ OR RULED OUT THIS ADMISSION FOR ACCURATE CODING AND BILLING. THANK YOU FOR CLARIFICATION! Please check appropriate box(es): [ x ] Sepsis due to: (Pna, UTI, gangrenous gall bladder, etc.) __lower leg cellulitis Due to: [ ] Device (please specify) [ ] Implant [ ] Graft [ ] Infusion [ ] SIRS due to non-infectious process (please specify etiology) [ ] with organ dysfunction [ ] without organ dysfunction [ ] Severe sepsis with acute organ dysfunction of: (Examples: respiratory failure, encephalopathy, acute kidney failure, other) [ ] Septic Shock [ ] Localized infection without sepsis [ ] Other diagnosis [ ] Unable to determine In addition, please specify: Present on Admission (POA): [ x ] Yes [ ] No [ ] Unable to determine For continuity of documentation, please document condition throughout progress notes and discharge summary. Thank You. CLINICAL INDICATORS - SIGNS / SYMPTOMS / LABS Altered mental status Fever or hypothermia (<96.8 F/36 C or > 100.4 F/38C) Respiratory rate >20/min, Hypoxemia, WBC count (>12,000/mm^4 or <4000/mm^3 or 10% neuts, 10% bands) 08/31 BLOOD CULTURES NO GROWTH AT 48 HOURS RISK FACTORS Infection/Bacteremia CELLULITIS LEFT LOWER EXTERMITIES Diabetes W/ POLYNEUROPATHY OSH/ BMI- 82.3 TREATMENTS: Initiation Sepsis Protocol ICU Daily CBC Blood/sputum/wound cultures ID Consult IV antibiotics - broad spectrum- VANCO AND ZOSYN IV ?uids (This form is maintained as a part of the permanent medical record) 2014 [employer]. All Rights Reserved [email or web address]
[2017-09-05] MEDS ORDERED: Warfarin Sodium 7.5 MG TAB PO SCH (17:00)
== END 2017-09-03 16:19 | DRG 872 ==
LOC: ERS 19:50 → T4-B 22:55
PROVIDERS: ADMIT Emergency Medicine; ATTEND Emergency Medicine
PROC: 3E0234Z Introduction of Serum, Toxoid and Vaccine into Muscle, Percutaneous Approach (ICD-10-PCS; principal; 2017-09-01)
DX: A41.9 Sepsis, unspecified organism (principal); L03.116 Cellulitis of left lower limb; E66.2 Morbid (severe) obesity with alveolar hypoventilation; Z68.45 Body mass index [BMI] 70 or greater, adult; I10 Essential (primary) hypertension; E11.42 Type 2 diabetes mellitus with diabetic polyneuropathy; D50.9 Iron deficiency anemia, unspecified; G89.29 Other chronic pain; I87.8 Other specified disorders of veins; I89.0 Lymphedema, not elsewhere classified; L29.9 Pruritus, unspecified; F41.9 Anxiety disorder, unspecified; G47.33 Obstructive sleep apnea (adult) (pediatric); E78.5 Hyperlipidemia, unspecified; F42.4 Excoriation (skin-picking) disorder; Z86.711 Personal history of pulmonary embolism; Z23 Encounter for immunization; Z79.4 Long term (current) use of insulin; Z99.81 Dependence on supplemental oxygen; Z79.01 Long term (current) use of anticoagulants; Z91.14 Patient's other noncompliance with medication regimen
CPT/HCPCS: 36415; 36416; 71045; 80048; 80053; 80202; 81003; 81015; 82728; 83540; 83550; 83605; 84466; 85025; 85379; 85520; 85610; 85730; 87040; 90471; 90732; 93005; 93970; 96361; 96365; A4216; G0009; G8978-GP-CL; G8979-GP-CJ; G8987-GO-CL; G8988-GO-CJ; J1650; J2543; J3370; J7050

== ENCOUNTER 2017-12-04 02:45 | Observation (INO) | payer MEDICARE ==
[2017-12-04 04:11] LABS: #Eosinphils 0.3 thou/uL (0.0-0.7); #Lymphocytes 1.4 thou/uL (1.20-3.40); #Monocytes 0.7 thou/uL (0.11-0.59); %Basophils 0.4 % (0.0-1.0); %Eosinophils 4.7 % (0.0-10.0); %Lymphocytes 18.3 % (21.0-51.0); %Monocytes 9.4 % (0.0-10.0); %Neutrophils 67.2 % (42.0-75.0); Hemoglobin 10.8 g/dL (14.0-18.0); Mean Corpuscular HGB CONC 30.5 g/dL (32.0-36.0); Mean Corpuscular Hemoglobin 25.1 pg (27.0-31.0); Mean Corpuscular Volume 82.2 fL (78.0-98.0); Mean Platelet Volume 10.3 fL (7.4-10.4); Platelet Count 198 thou/uL (130-400); RBC Distribution Width 17.6 % (11.5-14.5); Red Blood Cell (RBC) Count 4.32 mill/uL (4.70-6.10); White Blood Cell (WBC) Count 7.4 thou/uL (4.8-10.8)
[2017-12-04 04:29] LABS: ALT (SGPT) 13 U/L (8-55); AST (SGOT) 20 U/L (5-34); Albumin 3.1 g/dL (3.5-5.0); Alkaline Phosphatase 69 U/L (40-150); Anion Gap 11 mmol/L (10-20); BUN (Urea Nitrogen) 7 mg/dL (8.9-20.6); Bilirubin, Total 0.4 mg/dL (0.2-1.2); Calc. Creatinine Clearance 0 mL/min (70-130); Carbon Dioxide 30 mmol/L (22-29); Chloride 98 mmol/L (98-107); Estimated GFR-MDRD Greater than 90; Globulin 4.9 g/dL (2.4-3.5); Glucose 188 mg/dL (70-105); Potassium 3.9 mmol/L (3.5-5.1); Sodium 135 mmol/L (136-145)
[2017-12-04 05:40] LABS: INR-International Normal Ratio 1.1; PTT 33.1 SEC (22.9-36.1); Prothrombin Time 13.9 SEC (12.0-14.7)
--- NOTE | 2017-12-04 06:01 | PDOC.FPRHP ---
- History of Present Illness Chief Complaint: RLE pain History of Present Illness: This is a 42 yo M here for a chief complaint of RLE pain. Patient is morbidly obese and has a PMH of lymphedema, DMII, HTN, SHAAN and presumed PEs. The patient stated that the pain in the RLE began about 2 days ago. The patient states that at physical therapy yesterday, they noted that his RLE was more swollen that normal. The patient endorses that the RLE is more tender than usual. Denies increased erythematous, no fever. The patient notes that he was recently taken off coumadin about 2-3 weeks ago due to his INR being 7. It was decided to d/c the coumadin at that time. Patient denies SOB, chest pain, abdominal pain, NVD. ED Course: US of RLE: neg for DVT; pos for right saphenous thrombosis - Allergies/Adverse Reactions Allergies Allergy/AdvReac Type Severity Reaction Status Date / Time No Known Drug Allergies Allergy Unknown Verified 12/04/17 10:45 - Home Medications Medication Instructions Recorded Confirmed Type HYDROcodone Bit/APAP 10/325 [[place]] 1 tab PO Q6HR PRN 09/11/12 12/04/17 History metFORMIN [Glucophage] 1,000 mg PO BID-WM 09/11/12 12/04/17 History Pravastatin Sodium [Pravachol] 20 mg PO HS 08/14/14 12/04/17 History Acetaminophen [Tylenol Extra 500 mg PO 1200 09/01/17 12/04/17 History Strength] Acetaminophen [Tylenol Extra 500 mg PO BID 09/01/17 12/04/17 History Strength] Furosemide [Lasix] 40 mg PO DAILY 09/01/17 12/04/17 History Gabapentin 1,200 mg PO TID 09/01/17 12/04/17 History Lisinopril 40 mg PO DAILY 09/01/17 12/04/17 History Pantoprazole [Protonix] 40 mg PO DAILY 09/01/17 12/04/17 History Amlodipine [Norvasc] 10 mg PO DAILY 12/04/17 12/04/17 History Rivaroxaban [Xarelto Starter Pack] 1 tablet PO ASDIR 30 Days pack 12/04/17 Rx - History PMHx: DMII, lymphedema, HTN, PE, renal dz, SHAAN PSHx: none FHx: non-contributory Social: denies tobacco, alcohol, drug use - Review of Systems General: denies: fever/chills, weight/appetite/sleep changes, night sweats ENT: reports: nasal congestion. denies: rhinorrhea Respiratory: reports: cough. denies: congestion, shortness of breath Cardiovascular: reports: edema. denies: chest pain, palpitation Gastrointestinal: reports: diarrhea (patient's usual - intermittent). denies: nausea, vomiting, constipation, abdominal pain, GI bleeding Skin: reports: lesions (bilateral LE venous stasis) Musculoskeletal: reports: pain (RLE mid calf) - Vital signs BP: 135/71 HR: 92 RR: 24 Tmax: 98.2 Pox: 95% on RA Wt: 279kg - Physical Exam Constitutional: NAD, awake, alert and oriented -Constitutional: morbidly obese HEENT: normocephalic and atraumatic, EOMI, grossly normal vision, grossly normal hearing Chest: no-tender to palpation, no lesions Heart: RRR, normal S1/S2 -Heart: difficult to assess due to body habitus -Lungs: cannot assess due to body habitus Abdomen: soft Neurological: no focal deficit, normal sensation (in LE bilaterally) -Skin: venous stasis bilaterally Psychiatric: normal mood and affect FMR H&P: Results - Labs Result Diagrams: 12/04/17 03:51 12/04/17 03:51 Lab results: WBC 7.4 thou/uL (4.8-10.8) 12/04/17 03:51 Hgb 10.8 g/dL (14.0-18.0) L 12/04/17 03:51 Hct 35.5 % (42.0-52.0) L 12/04/17 03:51 MCV 82.2 fL (78.0-98.0) 12/04/17 03:51 Plt Count 198 thou/uL (130-400) 12/04/17 03:51 Neutrophils % 67.2 % (42.0-75.0) 12/04/17 03:51 Sodium 135 mmol/L (136-145) L 12/04/17 03:51 Potassium 3.9 mmol/L (3.5-5.1) 12/04/17 03:51 Chloride 98 mmol/L (98-107) 12/04/17 03:51 Carbon Dioxide 30 mmol/L (22-29) H 12/04/17 03:51 BUN 7 mg/dL (8.9-20.6) L 12/04/17 03:51 Creatinine 0.69 mg/dL (0.6-1.3) 12/04/17 03:51 Glucose 188 mg/dL (70-105) H 12/04/17 03:51 Calcium 9.0 mg/dL (7.8-10.44) 12/04/17 03:51 Total Bilirubin 0.4 mg/dL (0.2-1.2) 12/04/17 03:51 AST 20 U/L (5-34) 12/04/17 03:51 ALT 13 U/L (8-55) 12/04/17 03:51 Alkaline Phosphatase 69 U/L (40-150) 12/04/17 03:51 Serum Total Protein 8.0 g/dL (6.0-8.3) 12/04/17 03:51 Albumin 3.1 g/dL (3.5-5.0) L 12/04/17 03:51 FMR H&P: A/P - Problem List (1) Lymphedema Status: Acute Code(s): I89.0 - LYMPHEDEMA, NOT ELSEWHERE CLASSIFIED (2) Hypertension Status: Chronic Code(s): I10 - ESSENTIAL (PRIMARY) HYPERTENSION Qualifiers: Hypertension type: essential hypertension Qualified Code(s): I10 - Essential (primary) hypertension (3) Morbid obesity Status: Chronic Code(s): E66.01 - MORBID (SEVERE) OBESITY DUE TO EXCESS CALORIES (4) SHAAN (obstructive sleep apnea) Status: Chronic Code(s): G47.33 - OBSTRUCTIVE SLEEP APNEA (ADULT) (PEDIATRIC) (5) Pulmonary embolism Status: Chronic Code(s): I26.99 - OTHER PULMONARY EMBOLISM WITHOUT ACUTE COR PULMONALE Qualifiers: Chronicity: chronic (6) Type 2 diabetes mellitus Status: Chronic Qualifiers: Diabetes mellitus intermediate school teacher insulin use: without chcf use Diabetes mellitus complication status: with neurologic complications Diabetes mellitus complication detail: with polyneuropathy Qualified Code(s): E11.42 - Type 2 diabetes mellitus with diabetic polyneuropathy (7) Hyponatremia Status: Acute Code(s): E87.1 - HYPO-OSMOLALITY AND HYPONATREMIA - Plan This is a 42 yo M here for RLE pain and cough. RLE Pain - likely 2/2 to right saphenous thrombosis - US showed right saphenous thrombosis; no DVT present - patient started on Heparin protocol per pharmacy due to patient size - INR: 1.2, will repeat labs tomorrow Hyponatremia - Na: 135 - Will monitor for now - recheck with AM lab tomorrow HTN - Will restart home medications - BP: 135/71 in ED DMII - Will restart home meds - Glucose 188 in ED Hx of PE - pt has had cough for several months - CXR taken in ED showing no acute cardiopulm process - O2 sats 95 on RA - Will continue to monitor VS SHAAN - Aware Lymphedema - Aware, see above for RLE pain Case discussed with Dr. Myrick FMR H&P: Upper Level - Pertinent history 42 yo male here with right lower leg pain and concern for VTE. Yesterday he developed pressure feeling in his right posterior calf with assoc erythema and swelling, warmth. Denies SOB, CP, palpitations. Pt has history of presumed PE (other causes ruled out, but no CTA or V/Q due to body habitus) and was on Coumadin 10mg until he had an INR of 7.8 on 11/07/17. He was told to stop Coumadin and recheck the following Friday. Apparently this never happened and he has been off Coumadin since then. Was suppose to get in to see pulmonology to discuss the need for intermediate school teacher anticoagulation such as through a NOAC. However, it sounds like he did not do this. - Pertinent findings GEN: morbidly obese limiting exam; NAD, AOx3 CARD: mild systolic murmur, RRR PULM: CTAB, decreased IE ratio EXT: Rt leg below the knee erythematous and tender to the touch; left lower leg has diffuse 2-4 cm sores with no discharge or bleeding 135/71 HR: 92 Temp: 98.2 SO2: 95% RR: 24 LE US: no sign of DVT INR: 1.1 WBC: 7.4 H/H: 10.8/35.5 Plt: 198 Glucose: 188 - Plan Date/Time: 12/04/17 0557 Luis Miguel Hurley DO, have evaluated this patient and agree with findings/plan as outlined by art gallery internship resident. Pertinent changes/additions are listed here. superficial vein thrombosis concern for DVT less now that we are able to evaluate, however it might be worth having pulmonology come by or at least discuss with them about the need for anticoagulation intermediate school teacher. If so, talk with CM about NOACs as patient does not have Part D insurance. Will get wound care consult for leg wounds. Hypertension continue home meds DMII continue home meds Hx of PE presumptive diagnosis as he was not able to get CTA or V/Q due to body habitus No signs or symptoms at this time Lymphedema SHAAN Attending Addendum - Attending Addendum Date/Time: 12/04/17 6157 I personally evaluated the patient and discussed the management with Dr. Lopez. I agree with the History, Examination, Assessment and Plan documented above with any addition or exceptions noted below. The patient has had fluctuations in his INR. Initially it was supratherapeutic , no subtherapeutic. Will transition to NOAC so that pt doesn't require frequent blood draws. Pt in agreement. Will likely d/c home.
[2017-12-04] MEDS ORDERED: Heparin 25,000 units/D5W 500 ML IV SCH (08:15)
[2017-12-04] MEDS ORDERED: Heparin 10,000 UNITS/ 10 ML VIAL SLOW IVP SCH (08:15)
[2017-12-04] MEDS ORDERED: Acetaminophen 325 MG TAB PO PRN (08:32)
--- NOTE | 2017-12-04 08:33 | RAD ---
PORTABLE CHEST 1 VIEW: DATE: 12/04/17. TIME: 3:22 a.m. HISTORY: Cough. FINDINGS: Comparison is made with the exam of 08/31/17. The heart is enlarged. There is pulmonary vascular congestion. No pneumothoraces or large effusions are seen. There is confluence of interstitial markings in the right infrahilar lung. The possibili ty of a developing early infiltrate/pneumonia cannot be excluded. POS: [facility]
--- NOTE | 2017-12-04 09:10 | ULT ---
PRELIMINARY REPORT/[facility]/EMERGENT[facility] AFTER-HOURS PROCEDURE US Duplex Right Lower Extremity Veins EXAM DATE/TIME: Exam ordered 12/04/2017 3:56 AM CLINICAL HISTORY: 42 years old, male; Pain and signs and symptoms; Edema, localized; Lower extremity, right; Leg, lower ; Patient HX: Rt leg pain x 2 days. Patient morbidly obese. TECHNIQUE: Real-time duplex ultrasound scan of the right lower extremity veins integrating B-mode two dimensiona l vascular structure, Doppler spectral analysis, color flow Doppler imaging and compression. COMPARISON: No relevant prior studies available. FINDINGS: Deep veins: Unremarkable. No DVT in the visualized common femoral, femoral, proximal deep femoral or popliteal veins. The veins demonstrate normal color flow, are normally compressible, with normal phas ic flow and/or augmentation response. Superficial veins: Partially occlusive thrombosis of the right greater saphenous vein from the distal thigh to the calf. Soft tissues: No acute findings. No popliteal cyst. IMPRESSION: 1. Partially occlusive thrombosis of the right greater saphenous vein from the distal thigh to the ca lf. 2. No DVT. Thank you for allowing us to participate in the care of your patient. Dictated and Authenticated by: Rosas Anguiano MD 12/04/2017 4:52 AM Central Time ([place] & [place]) FINAL REPORT VENOUS DOPPLER ULTRASOUND OF THE RIGHT LOWER EXTREMITY: Date: 12/04/17 FINDINGS/IMPRESSION: I agree with the preliminary report given by Anais. POS: [facility]
[2017-12-04 10:56] VITALS: BMI 79.1
[2017-12-04] MEDS ORDERED: HYDROcodone/Acetaminophen 10/325 mg Tablet PO PRN (11:54)
[2017-12-04] MEDS ORDERED: Acetaminophen 500 MG TAB PO SCH ×2 (12:00→21:00)
[2017-12-04] MEDS ORDERED: Gabapentin 400 MG CAP PO SCH (15:00)
[2017-12-04] MEDS ORDERED: metFORMIN 500 MG TAB PO SCH (17:00)
[2017-12-04 20:55] VITALS: BP 152/72; TEMP 98.8
[2017-12-04] MEDS ORDERED: Pravastatin Sodium 20 MG TAB PO SCH (21:00)
[2017-12-04] MEDS ORDERED: Nystatin Powder 15 GM BOT TOP SCH (21:00)
[2017-12-05] MEDS ORDERED: Amlodipine 10 MG TAB PO SCH (09:00)
[2017-12-05] MEDS ORDERED: Lisinopril 20 MG TAB PO SCH (09:00)
[2017-12-05] MEDS ORDERED: Furosemide 40 MG TAB PO SCH (09:00)
--- NOTE | 2017-12-05 12:48 | DIS-2 ---
DATE OF ADMISSION: 12/04/2017 DATE OF DISCHARGE: 12/04/2017 RESIDENT: Chris Arias M.D. ADMITTING ATTENDING: Dr. Ana Myrick DISCHARGE ATTENDING: Dr. Ana Myrick. CONSULTS: None. PROCEDURES: 1. Chest x-ray on 12/04/2017 showing pulmonary vascular congestion. No pneumothoraces with ____. 2. Vascular ultrasound of the right upper extremity showed a partially occlusive thrombus of the rig ht greater saphenous vein from the distal thigh to the calf with no DVT. PRIMARY DIAGNOSIS: Superficial vein thrombosis. SECONDARY DIAGNOSES: 1. Hypertension. 2. Diabetes type 2. 3. History of pulmonary embolism. 4. Edema. 5. Obstructive sleep apnea. DISCHARGE MEDICATIONS: 1. Hydrocodone 10/325 one tab p.o. q.6 hours p.r.n. 2. Metformin 1000 mg p.o. b.i.d. 3. Pravastatin 20 mg at bedtime. 4. Gabapentin 200 mg t.i.d. 5. Protonix 40 mg p.o. daily. 6. ____ 500 mg p.o. b.i.d. 7. Furosemide 40 mg p.o. daily. 8. Amlodipine 2 mg p.o. daily. 9. Rivaroxaban starter pack take 1 tab p.o. as directed for 30 days before initiating maintenance d ose. DISCONTINUED MEDICATIONS: None. HISTORY OF PRESENT ILLNESS/HOSPITAL COURSE: This is a 42-year-old male presenting with a chief compl aint of right lower extremity pain. The patient is morbidly obese with known history of PEs and a huber perficial saphenous vein thrombosis. The pain acutely worsened 2 days ago. The patient feels that t he right lower extremity is more swollen than normal and that is why he came to the ER. The patient notes that he was recently taken off of Coumadin about 2-3 weeks ago due to his INR being supratherap eutic at value of 7. His PCP decided to discontinue his Coumadin in favor of a NOAK. The patient de nied chest pain, shortness breath, abdominal pain, diarrhea upon presentation to the ER. The patient was unable to do CTA or VQ scan due to his body habitus. The patient was admitted for further workup. At no point did the team suspect pulmonary embolism. E KG was normal and he was satting at his baseline. The lower extremity ultrasound revealed no finding s of thrombus as mentioned above. The patient was transitioned to a novel oral anticoagulation agent s and to follow up with PCP in 1 week for further help on the Xarelto assistance program. CONDITION: Stable. DISCHARGE INSTRUCTIONS: 1. Location: Home. 2. Diet: Heart healthy. 3. Activity. Ad chester. 4. Followup: Follow up with Dr. Lowe, his PCP in 7 days.
== END 2017-12-04 20:59 | disposition home or self-care (01) ==
LOC: ERS 02:45 → T4-A 07:44
PROVIDERS: ADMIT Family Medicine; ATTEND Family Medicine
DX: I82.811 Embolism and thrombosis of superficial veins of right lower extremity (principal); I10 Essential (primary) hypertension; G47.33 Obstructive sleep apnea (adult) (pediatric); I89.0 Lymphedema, not elsewhere classified; E11.42 Type 2 diabetes mellitus with diabetic polyneuropathy; E87.1 Hypo-osmolality and hyponatremia; E66.01 Morbid (severe) obesity due to excess calories; Z68.45 Body mass index [BMI] 70 or greater, adult; Z86.711 Personal history of pulmonary embolism; Z79.01 Long term (current) use of anticoagulants; Z79.84 Long term (current) use of oral hypoglycemic drugs; Z79.899 Other long term (current) drug therapy
CPT/HCPCS: 71045; 80053; 82962; 85025; 85610; 85730; 90732; 93971; 97139; 99285; G0009; G0378 ×2; 36415; 36416; 90471; J1644

== ENCOUNTER 2018-01-16 19:10 | Emergency (ER) | payer MEDICARE ==
--- NOTE | 2018-01-16 20:18 | RAD ---
SEMIUPRIGHT PORTABLE CHEST ONE VIEW: 01/16/18 HISTORY: 42-year-old male with history of cough with fluid build up. Monitor leads overlie the chest. Large body habitus lowers the sensitivity of this study. Bilateral v ascular congestion with borderline sized heart. No confluent pneumonia. Minimal motion artifact. IMPRESSION: Minimal cardiomegaly with bilateral vascular congestion. Exam limited because of large body habitus. No overt acute process or significant change from the prior study. POS: [facility]
[2018-01-16 20:50] LABS: Hemoglobin 10.3 g/dL (14.0-18.0); Mean Corpuscular HGB CONC 29.9 g/dL (32.0-36.0); Mean Corpuscular Hemoglobin 24.4 pg (27.0-31.0); Mean Corpuscular Volume 81.6 fL (78.0-98.0); Mean Platelet Volume 9.4 fL (7.4-10.4); Platelet Count 192 thou/uL (130-400); RBC Distribution Width 15.3 % (11.5-14.5); Red Blood Cell (RBC) Count 4.24 mill/uL (4.70-6.10); White Blood Cell (WBC) Count 8.7 thou/uL (4.8-10.8)
[2018-01-16 21:06] LABS: ALT (SGPT) 11 U/L (8-55); AST (SGOT) 16 U/L (5-34); Alkaline Phosphatase 63 U/L (40-150); Anion Gap 10 mmol/L (10-20); BUN (Urea Nitrogen) 8 mg/dL (8.9-20.6); Bilirubin, Total 0.5 mg/dL (0.2-1.2); Calc. Creatinine Clearance 0 mL/min (70-130); Calcium 8.6 mg/dL (7.8-10.44); Carbon Dioxide 30 mmol/L (22-29); Chloride 98 mmol/L (98-107); Estimated GFR-MDRD Greater than 90; Globulin 4.8 g/dL (2.4-3.5); Glucose 165 mg/dL (70-105); Potassium 3.9 mmol/L (3.5-5.1); Protein, Total 7.8 g/dL (6.0-8.3); Sodium 134 mmol/L (136-145)
[2018-01-16 21:11] LABS: #Eosinphils 0.1 thou/uL (0.0-0.7); #Lymphocytes 1.2 thou/uL (1.20-3.40); #Monocytes 0.8 thou/uL (0.11-0.59); #Neutrophils 6.5 thou/uL (1.40-6.50); %Basophils 0.2 % (0.0-1.0); %Eosinophils 1.2 % (0.0-10.0); %Lymphocytes 13.6 % (21.0-51.0); %Monocytes 9.8 % (0.0-10.0); %Neutrophils 75.2 % (42.0-75.0); Anisocytosis SLIGHT = 6-15 cells (100X) (0-5/hpf); Hypochromia SLIGHT = 6-15 cells (100X) (0-5/hpf); MDiff Complete? YES; PLT Morphology Comment Appears Adequate; Polychromasia SLIGHT = 2-3 cells (100X) (0-2/hpf)
[2018-01-16] MEDS ORDERED: cloNIDine 0.1 MG TAB ONE ×2 (21:49→21:50)
[2018-01-16] MEDS ORDERED: hydrALAZINE 20 MG/ML VIAL ONE ×2 (21:49→21:50)
== END 2018-01-16 22:01 | disposition home or self-care (01) ==
LOC: ERS 19:10
DX: R60.0 Localized edema (principal); E11.9 Type 2 diabetes mellitus without complications; I10 Essential (primary) hypertension; Z86.711 Personal history of pulmonary embolism; G47.30 Sleep apnea, unspecified; Z79.899 Other long term (current) drug therapy; Z79.84 Long term (current) use of oral hypoglycemic drugs
CPT/HCPCS: 71045; 80053; 83880; 85025; 94760; J0360

== ENCOUNTER 2018-04-10 10:19 | Emergency (ER) | payer MEDICARE ==
[2018-04-10] MEDS ORDERED: Succinylcholine Chloride 20 MG/ML 10 ml SYRINGE FS ONE (10:28)
[2018-04-10] MEDS ORDERED: Ondansetron PF 4 MG/2 ML Vial ONE (10:33)
[2018-04-10] MEDS ORDERED: hydrOXYzine 25 MG TAB ONE (11:35)
[2018-04-10] MEDS ORDERED: Cephalexin 250 MG CAP ONE (11:35)
== END 2018-04-10 11:12 | disposition home or self-care (01) ==
LOC: ERS 10:19
DX: L97.929 Non-pressure chronic ulcer of unspecified part of left lower leg with unspecified severity (principal); E11.9 Type 2 diabetes mellitus without complications; I10 Essential (primary) hypertension; Z86.711 Personal history of pulmonary embolism; G47.30 Sleep apnea, unspecified; E66.01 Morbid (severe) obesity due to excess calories; Z79.899 Other long term (current) drug therapy; Z79.84 Long term (current) use of oral hypoglycemic drugs
CPT/HCPCS: 51702; J2405

== ENCOUNTER 2018-09-07 17:14 | Emergency (ER) | payer MEDICARE | END 2018-09-07 18:39 | disposition home or self-care (01) | LOC: ERS 17:14 | DX: M79.674 Pain in right toe(s) (principal); E11.9 Type 2 diabetes mellitus without complications; I10 Essential (primary) hypertension; G47.30 Sleep apnea, unspecified; E66.01 Morbid (severe) obesity due to excess calories; Z86.711 Personal history of pulmonary embolism; Z79.891 Long term (current) use of opiate analgesic; Z79.84 Long term (current) use of oral hypoglycemic drugs; Z79.899 Other long term (current) drug therapy; Z79.1 Long term (current) use of non-steroidal anti-inflammatories (NSAID) | CPT/HCPCS: 99283 ==

== ENCOUNTER 2020-02-29 14:39 | Emergency (ER) | payer MEDICARE | END 2020-02-29 16:44 | disposition home or self-care (01) | LOC: ERS 14:39 | DX: L89.899 Pressure ulcer of other site, unspecified stage (principal); E11.9 Type 2 diabetes mellitus without complications; I10 Essential (primary) hypertension; G47.30 Sleep apnea, unspecified; E66.01 Morbid (severe) obesity due to excess calories; Z79.84 Long term (current) use of oral hypoglycemic drugs; Z79.899 Other long term (current) drug therapy | CPT/HCPCS: 87070; 87077; 87186; 87205; 99284 ==

== ENCOUNTER 2025-02-22 06:01 | Inpatient (IN) | payer MEDICARE ==
[2025-02-22 07:02] LABS: INR-International Normal Ratio 4.7; Prothrombin Time 44.2 sec (12.0-14.7)
[2025-02-22 07:03] LABS: PTT 49.8 sec (22.9-36.1)
[2025-02-22 07:09] LABS: ALT (SGPT) 7 U/L (Less than 45); AST (SGOT) 29 U/L (11-34); Albumin 2.9 g/dL (3.1-4.5); Alkaline Phosphatase 61 U/L (40-110); Anion Gap 19 mmol/L (10-20); BUN (Urea Nitrogen) 18 mg/dL (8.9-20.6); Bilirubin, Total 0.4 mg/dL (0.3-1.2); CK (CPK) 24 U/L (30-200); Calc. Creatinine Clearance 0 mL/min (70-130); Calcium 8.2 mg/dL (7.8-10.44); Carbon Dioxide 18 mmol/L (22-29); Chloride 104 mmol/L (98-107); Globulin 4.5 g/dL (2.4-3.5); Glucose 274 mg/dL (70-105); Potassium 4.8 mmol/L (3.5-5.1); Sodium 136 mmol/L (136-145)
[2025-02-22 07:17] LABS: #Basophils Less than 0.03 10x3/uL (0.0-0.2); #Eosinophils Less than 0.03 10x3/uL (0.0-0.7); #Monocytes 1.11 10x3/uL (0.11-0.59); #Neutrophils 14.70 10x3/uL (1.40-6.50); %Basophils 0.1 % (0.0-1.0); %Eosinophils 0.1 % (0.0-10.0); %Lymphocytes 3.8 % (21.0-51.0); %Monocytes 6.7 % (0.0-10.0); %Neutrophils 88.5 % (42.0-75.0); Hematocrit 28.4 % (42.0-52.0); Hemoglobin 8.0 g/dL (14.0-18.0); Mean Corpuscular Hemoglobin 21.6 pg (27.0-31.0); Mean Corpuscular Volume 76.5 fL (78.0-98.0); Platelet Count 325 10x3/uL (130-400); Red Blood Cell (RBC) Count 3.71 mill/uL (4.70-6.10); White Blood Cell (WBC) Count 16.61 10x3/uL (4.8-10.8)
[2025-02-22 07:52] LABS: Anisocytosis SLIGHT = 6-15 cells HPF (0-5); Microcytosis SLIGHT = 6-15 cells HPF (0-5); Ovalocytes SLIGHT = 2-5 cells HPF (0-1); Platelet Adequacy Comment Platelets Normal; Polychromasia SLIGHT = 2-3 cells HPF (0-2); Smudge Cells 2.0 %
[2025-02-22 07:56] LABS: Actual Bicarbonate (HCO3v) 22.3 mEq/L (22-28); Base Excess -6.7 mEq/L (-2.0 to +3.0); Calcium, Ionized (venous) 1.08 mmol/L (1.16-1.32); Chloride (VBG) 102 mmol/L (98-106); Hematocrit-VBG 27 % (42.0-52.0); Hemoglobin (Hb) 9.2 g/dL (13.1-17.2); Potassium (VBG) 4.12 mmol/L (3.70-5.30)
[2025-02-22] MEDS ORDERED: Dextrose 50% Abboject 50 ML SYRINGE SLOW IVP PRN (08:58)
[2025-02-22] MEDS ORDERED: Glucagon 1 MG/ML KIT IM PRN (08:58)
[2025-02-22] MEDS ORDERED: Furosemide 40 MG TAB PO SCH (09:00)
[2025-02-22] MEDS ORDERED: Enoxaparin 40 MG (0.4 mL) SYRINGE SC SCH (09:00)
[2025-02-22 09:31] VITALS: BMI 73.7
[2025-02-22] MEDS ORDERED: Furosemide 40 MG (4 mL) VIAL ONE (10:00)
[2025-02-22] MEDS: Furosemide 40 MG (4 mL) VIAL SLOW IVP SCH ×2 (10:34→14:29)
[2025-02-22 11:29] LABS: Bacteria/HPF None Seen HPF (None Seen); CAUTI Indications for Culture Pelvic or flank pain; Glucose, Urine (Dipstick) 30 mg/dL (Negative); Leukocyte Negative Leu/uL (Negative); Protein, Urine (Dipstick) 30 mg/dL (Neg-Trace); RBC/HPF 0-3 HPF (0-3); Specific Gravity, Urine 1.019 (1.002-1.036); WBC/HPF None Seen HPF (0-3)
[2025-02-22] MEDS ORDERED: Famotidine/PF 20 mg/2ml Vial ONE (11:30)
[2025-02-22] MEDS ORDERED: Acetaminophen 325 MG TAB ONE (11:32)
[2025-02-22 11:37] LABS: Urine Culture Reflex No No
[2025-02-22] MEDS: Acetaminophen 325 MG TAB PO PRN (11:37)
[2025-02-22] MEDS: Famotidine/PF 20 mg/2ml Vial SLOW IVP SCH (11:37)
[2025-02-22 11:39] LABS: Cocaine Metabolite Screen Negative (Negative); THC/Cannabinoid Screen Negative (Negative); Tricyclic Screen Negative (Negative)
[2025-02-22] MEDS ORDERED: Calcium Carbonate 500 MG ChewTAB PO PRN (16:19)
[2025-02-22] MEDS ORDERED: Guaifenesin DM 100-10/5 ML UDCUP PO PRN (16:31)
[2025-02-22] MEDS: metFORMIN 500 MG TAB PO SCH (16:38)
[2025-02-22] MEDS: Gabapentin 400 MG CAP PO SCH (20:10)
[2025-02-22] MEDS: Acetaminophen/Codeine 30-300mg Tablet PO SCH ×2 (20:10→22:06)
[2025-02-22] MEDS: Insulin Glargine 30 UNITS/0.3 ML VIAL SC SCH (20:11)
[2025-02-22] MEDS: Lisinopril 20 MG TAB PO SCH (21:28)
[2025-02-23 06:00] LABS: #Basophils Less than 0.03 10x3/uL (0.0-0.2); #Eosinophils Less than 0.03 10x3/uL (0.0-0.7); #Monocytes 2.41 10x3/uL (0.11-0.59); #Neutrophils 14.15 10x3/uL (1.40-6.50); %Basophils 0.1 % (0.0-1.0); %Eosinophils 0.0 % (0.0-10.0); %Lymphocytes 5.3 % (21.0-51.0); %Monocytes 13.7 % (0.0-10.0); %Neutrophils 80.3 % (42.0-75.0); Hematocrit 22.4 % (42.0-52.0); Hemoglobin 6.7 g/dL (14.0-18.0); Mean Corpuscular Hemoglobin 21.8 pg (27.0-31.0); Mean Corpuscular Volume 72.7 fL (78.0-98.0); Platelet Count 224 10x3/uL (130-400); Red Blood Cell (RBC) Count 3.08 mill/uL (4.70-6.10); White Blood Cell (WBC) Count 17.62 10x3/uL (4.8-10.8)
[2025-02-23 06:10] LABS: ALT (SGPT) 7 U/L (Less than 45); AST (SGOT) 15 U/L (11-34); Albumin 2.7 g/dL (3.1-4.5); Alkaline Phosphatase 50 U/L (40-110); Anion Gap 15 mmol/L (10-20); BUN (Urea Nitrogen) 26 mg/dL (8.9-20.6); Bilirubin, Total 0.5 mg/dL (0.3-1.2); Calc. Creatinine Clearance 267 mL/min (70-130); Calcium 8.1 mg/dL (7.8-10.44); Carbon Dioxide 25 mmol/L (22-29); Chloride 102 mmol/L (98-107); Globulin 4.0 g/dL (2.4-3.5); Glucose 157 mg/dL (70-105); Potassium 4.2 mmol/L (3.5-5.1); Sodium 138 mmol/L (136-145)
[2025-02-23 06:36] LABS: Microcytosis SLIGHT = 6-15 cells HPF (0-5); Platelet Adequacy Comment Platelets Normal; Polychromasia SLIGHT = 2-3 cells HPF (0-2)
[2025-02-23] MEDS: Amiodarone 200 MG TAB PO SCH (08:28)
[2025-02-23] MEDS: Ferrous Sulfate 325 MG TAB PO SCH (08:28)
[2025-02-23] MEDS: glipiZIDE XL 10 mg ER.TAB PO SCH (08:29)
[2025-02-23] MEDS ORDERED: Non-Formulary Item 1 EACH (Famotidine [Famotidine] 40 MG Tablet) PO SCH (09:00)
[2025-02-23 10:30] LABS: INR-International Normal Ratio 4.4; Prothrombin Time 42.4 sec (12.0-14.7)
[2025-02-23] MEDS: Ondansetron PF 4 MG/2 ML Vial IVP PRN (13:15)
[2025-02-24 05:52] LABS: #Basophils Less than 0.03 10x3/uL (0.0-0.2); #Eosinophils Less than 0.03 10x3/uL (0.0-0.7); #Monocytes 2.09 10x3/uL (0.11-0.59); #Neutrophils 10.02 10x3/uL (1.40-6.50); %Basophils 0.2 % (0.0-1.0); %Eosinophils 0.2 % (0.0-10.0); %Lymphocytes 8.0 % (21.0-51.0); %Monocytes 15.7 % (0.0-10.0); %Neutrophils 75.3 % (42.0-75.0); Hematocrit 24.6 % (42.0-52.0); Hemoglobin 7.1 g/dL (14.0-18.0); Mean Corpuscular Hemoglobin 22.0 pg (27.0-31.0); Mean Corpuscular Volume 76.4 fL (78.0-98.0); Platelet Count 209 10x3/uL (130-400); Red Blood Cell (RBC) Count 3.22 mill/uL (4.70-6.10); White Blood Cell (WBC) Count 13.29 10x3/uL (4.8-10.8)
[2025-02-24 05:54] LABS: Anion Gap 10 mmol/L (10-20); BUN (Urea Nitrogen) 20 mg/dL (8.9-20.6); Calc. Creatinine Clearance 440 mL/min (70-130); Calcium 8.5 mg/dL (7.8-10.44); Carbon Dioxide 27 mmol/L (22-29); Chloride 102 mmol/L (98-107); Glucose 116 mg/dL (70-105); Potassium 3.9 mmol/L (3.5-5.1); Sodium 135 mmol/L (136-145)
[2025-02-24] MEDS: Furosemide 40 MG TAB PO SCH (09:11)
[2025-02-24 09:51] LABS: Actual Bicarbonate (HCO3v) 28.1 mEq/L (22-28); Base Excess 2.4 mEq/L (-2.0 to +3.0); Calcium, Ionized (venous) 1.07 mmol/L (1.16-1.32); Chloride (VBG) 99 mmol/L (98-106); Hematocrit-VBG 23 % (42.0-52.0); Hemoglobin (Hb) 7.7 g/dL (13.1-17.2); Potassium (VBG) 4.11 mmol/L (3.70-5.30); Sodium 135 mmol/L (133-146)
[2025-02-24] MEDS: FLU (Fluarix Triv) 25-26 (6MOS UP)/PF 45 MCG/0.5 ML Syringe IM ONE (10:08)
[2025-02-24 10:13] LABS: INR-International Normal Ratio 4.6; Prothrombin Time 43.6 sec (12.0-14.7)
[2025-02-25 05:31] LABS: #Basophils Less than 0.03 10x3/uL (0.0-0.2); #Eosinophils 0.08 10x3/uL (0.0-0.7); #Monocytes 1.80 10x3/uL (0.11-0.59); #Neutrophils 7.11 10x3/uL (1.40-6.50); %Basophils 0.2 % (0.0-1.0); %Eosinophils 0.8 % (0.0-10.0); %Lymphocytes 8.4 % (21.0-51.0); %Monocytes 18.2 % (0.0-10.0); %Neutrophils 71.7 % (42.0-75.0); Hematocrit 22.7 % (42.0-52.0); Hemoglobin 6.5 g/dL (14.0-18.0); Mean Corpuscular Hemoglobin 22.0 pg (27.0-31.0); Mean Corpuscular Volume 76.9 fL (78.0-98.0); Platelet Count 201 10x3/uL (130-400); Red Blood Cell (RBC) Count 2.95 mill/uL (4.70-6.10); White Blood Cell (WBC) Count 9.91 10x3/uL (4.8-10.8)
[2025-02-25 05:32] LABS: INR-International Normal Ratio 4.7; Prothrombin Time 44.8 sec (12.0-14.7)
[2025-02-25 05:37] LABS: Anion Gap 14 mmol/L (10-20); BUN (Urea Nitrogen) 15 mg/dL (8.9-20.6); Calc. Creatinine Clearance 526 mL/min (70-130); Calcium 8.2 mg/dL (7.8-10.44); Carbon Dioxide 29 mmol/L (22-29); Chloride 97 mmol/L (98-107); Glucose 107 mg/dL (70-105); Potassium 4.0 mmol/L (3.5-5.1); Sodium 136 mmol/L (136-145)
[2025-02-25] MEDS ORDERED: Sodium Ferric Gluconate 250 MG in Sodium Chloride 0.9% 250 ML 250 ML IVPB SCH (12:00)
[2025-02-25] MEDS: Sodium Ferric Gluconate 250 MG in Sodium Chloride 0.9% 250 ML 250 ML IVPB SCH (14:06)
[2025-02-25] MEDS: HYDROcodone/Acetaminophen 10/325 mg Tablet PO PRN (15:36)
[2025-02-26 06:37] LABS: #Basophils Less than 0.03 10x3/uL (0.0-0.2); #Eosinophils 0.29 10x3/uL (0.0-0.7); #Monocytes 1.57 10x3/uL (0.11-0.59); #Neutrophils 5.57 10x3/uL (1.40-6.50); %Basophils 0.2 % (0.0-1.0); %Eosinophils 3.4 % (0.0-10.0); %Lymphocytes 12.4 % (21.0-51.0); %Monocytes 18.2 % (0.0-10.0); %Neutrophils 64.5 % (42.0-75.0); Hematocrit 24.3 % (42.0-52.0); Hemoglobin 7.2 g/dL (14.0-18.0); Mean Corpuscular Hemoglobin 23.1 pg (27.0-31.0); Mean Corpuscular Volume 77.9 fL (78.0-98.0); Platelet Count 226 10x3/uL (130-400); Red Blood Cell (RBC) Count 3.12 mill/uL (4.70-6.10); White Blood Cell (WBC) Count 8.63 10x3/uL (4.8-10.8)
[2025-02-26 06:43] LABS: Anion Gap 13 mmol/L (10-20); BUN (Urea Nitrogen) 11 mg/dL (8.9-20.6); Calc. Creatinine Clearance 560 mL/min (70-130); Calcium 8.3 mg/dL (7.8-10.44); Carbon Dioxide 29 mmol/L (22-29); Chloride 97 mmol/L (98-107); Glucose 121 mg/dL (70-105); Potassium 3.4 mmol/L (3.5-5.1); Sodium 136 mmol/L (136-145)
[2025-02-27 06:15] LABS: #Basophils 0.03 10x3/uL (0.0-0.2); #Eosinophils 0.29 10x3/uL (0.0-0.7); #Monocytes 1.50 10x3/uL (0.11-0.59); #Neutrophils 4.94 10x3/uL (1.40-6.50); %Basophils 0.4 % (0.0-1.0); %Eosinophils 3.6 % (0.0-10.0); %Lymphocytes 15.6 % (21.0-51.0); %Monocytes 18.4 % (0.0-10.0); %Neutrophils 60.4 % (42.0-75.0); Hematocrit 23.7 % (42.0-52.0); Hemoglobin 6.9 g/dL (14.0-18.0); Mean Corpuscular Hemoglobin 22.8 pg (27.0-31.0); Mean Corpuscular Volume 78.2 fL (78.0-98.0); Platelet Count 245 10x3/uL (130-400); Red Blood Cell (RBC) Count 3.03 mill/uL (4.70-6.10); White Blood Cell (WBC) Count 8.16 10x3/uL (4.8-10.8)
[2025-02-27 06:26] LABS: INR-International Normal Ratio 1.3; Prothrombin Time 16.6 sec (12.0-14.7)
[2025-02-27 06:32] LABS: Anion Gap 15 mmol/L (10-20); BUN (Urea Nitrogen) 10 mg/dL (8.9-20.6); Calc. Creatinine Clearance 579 mL/min (70-130); Calcium 8.4 mg/dL (7.8-10.44); Carbon Dioxide 27 mmol/L (22-29); Chloride 97 mmol/L (98-107); Glucose 104 mg/dL (70-105); Potassium 3.6 mmol/L (3.5-5.1); Sodium 135 mmol/L (136-145)
[2025-02-27 11:46] LABS: Hematocrit 23.1 % (42.0-52.0); Hemoglobin 6.6 g/dL (14.0-18.0)
[2025-02-28 05:51] LABS: #Basophils Less than 0.03 10x3/uL (0.0-0.2); #Eosinophils 0.21 10x3/uL (0.0-0.7); #Monocytes 0.99 10x3/uL (0.11-0.59); #Neutrophils 6.01 10x3/uL (1.40-6.50); %Basophils 0.2 % (0.0-1.0); %Eosinophils 2.5 % (0.0-10.0); %Lymphocytes 11.8 % (21.0-51.0); %Monocytes 11.6 % (0.0-10.0); %Neutrophils 70.6 % (42.0-75.0); Hematocrit 24.3 % (42.0-52.0); Hemoglobin 7.0 g/dL (14.0-18.0); Mean Corpuscular Hemoglobin 23.1 pg (27.0-31.0); Mean Corpuscular Volume 80.2 fL (78.0-98.0); Platelet Count 232 10x3/uL (130-400); Red Blood Cell (RBC) Count 3.03 mill/uL (4.70-6.10); White Blood Cell (WBC) Count 8.51 10x3/uL (4.8-10.8)
[2025-02-28 06:06] LABS: Anion Gap 14 mmol/L (10-20); Chloride 97 mmol/L (98-107); Potassium 3.8 mmol/L (3.5-5.1); Sodium 133 mmol/L (136-145)
[2025-02-28 06:29] LABS: BUN (Urea Nitrogen) 7 mg/dL (8.9-20.6); Calc. Creatinine Clearance 579 mL/min (70-130); Calcium 8.5 mg/dL (7.8-10.44); Carbon Dioxide 27 mmol/L (22-29); Glucose 158 mg/dL (70-105)
[2025-03-01 08:17] VITALS: BP 133/78; TEMP 98.2
== END 2025-03-01 11:44 | disposition home health service (06) | DRG 291 ==
LOC: ERS 06:01 → ERHOLD 08:45 → MSONC 13:29 → T4-A 21:19
PROVIDERS: ADMIT Family Medicine; ATTEND Internal Medicine
PROC: 3E03329 Introduction of Other Anti-infective into Peripheral Vein, Percutaneous Approach (ICD-10-PCS; principal; 2025-02-22)
PROC: 5A09357 Assistance with Respiratory Ventilation, Less than 24 Consecutive Hours, Continuous Positive Airway Pressure (ICD-10-PCS; 2025-02-22)
PROC: 30233N1 Transfusion of Nonautologous Red Blood Cells into Peripheral Vein, Percutaneous Approach (ICD-10-PCS; 2025-02-23)
PROC: 5A09357 Assistance with Respiratory Ventilation, Less than 24 Consecutive Hours, Continuous Positive Airway Pressure (ICD-10-PCS; 2025-02-23)
PROC: 5A09357 Assistance with Respiratory Ventilation, Less than 24 Consecutive Hours, Continuous Positive Airway Pressure (ICD-10-PCS; 2025-02-24)
PROC: 5A09357 Assistance with Respiratory Ventilation, Less than 24 Consecutive Hours, Continuous Positive Airway Pressure (ICD-10-PCS; 2025-02-25)
PROC: 5A09357 Assistance with Respiratory Ventilation, Less than 24 Consecutive Hours, Continuous Positive Airway Pressure (ICD-10-PCS; 2025-02-26)
PROC: 5A09357 Assistance with Respiratory Ventilation, Less than 24 Consecutive Hours, Continuous Positive Airway Pressure (ICD-10-PCS; 2025-02-27)
PROC: 5A09357 Assistance with Respiratory Ventilation, Less than 24 Consecutive Hours, Continuous Positive Airway Pressure (ICD-10-PCS; 2025-02-28)
DX: I50.33 Acute on chronic diastolic (congestive) heart failure (principal); G93.41 Metabolic encephalopathy; J96.02 Acute respiratory failure with hypercapnia; E66.2 Morbid (severe) obesity with alveolar hypoventilation; Z68.45 Body mass index [BMI] 70 or greater, adult; E87.29 Other acidosis; I5A Non-ischemic myocardial injury (non-traumatic); J96.11 Chronic respiratory failure with hypoxia; E11.9 Type 2 diabetes mellitus without complications; Z86.711 Personal history of pulmonary embolism; Z88.8 Allergy status to other drugs, medicaments and biological substances; L30.9 Dermatitis, unspecified; I87.8 Other specified disorders of veins; I48.0 Paroxysmal atrial fibrillation; I89.0 Lymphedema, not elsewhere classified; D50.9 Iron deficiency anemia, unspecified; Z86.718 Personal history of other venous thrombosis and embolism
CPT/HCPCS: 0439T; 36415; 36416; 36430; 71045; 80048; 80053; 80306; 82140; 82274; 82550; 82805; 83880; 84145; 84484; 85025; 85610; 85730; 86850; 86900; 86901; 87040; 93005; 94640; 94660; J1308; J1815; J1940; J2270; J2405; J2543; J2916; J3430; J7050; P9016; Q9957

== ENCOUNTER 2025-03-03 20:44 | Emergency (ER) | payer MEDICARE ==
[2025-03-03 22:10] LABS: #Basophils Less than 0.03 10x3/uL (0.0-0.2); #Eosinophils 0.08 10x3/uL (0.0-0.7); #Monocytes 1.20 10x3/uL (0.11-0.59); #Neutrophils 8.96 10x3/uL (1.40-6.50); %Basophils 0.2 % (0.0-1.0); %Eosinophils 0.7 % (0.0-10.0); %Lymphocytes 8.0 % (21.0-51.0); %Monocytes 10.5 % (0.0-10.0); %Neutrophils 78.1 % (42.0-75.0); Hematocrit 26.6 % (42.0-52.0); Hemoglobin 7.8 g/dL (14.0-18.0); Mean Corpuscular Hemoglobin 23.4 pg (27.0-31.0); Mean Corpuscular Volume 79.6 fL (78.0-98.0); Platelet Count 273 10x3/uL (130-400); Red Blood Cell (RBC) Count 3.34 mill/uL (4.70-6.10); White Blood Cell (WBC) Count 11.47 10x3/uL (4.8-10.8)
[2025-03-03 22:48] LABS: ALT (SGPT) 24 U/L (Less than 45); AST (SGOT) 57 U/L (11-34); Albumin 2.5 g/dL (3.1-4.5); Alkaline Phosphatase 112 U/L (40-110); Anion Gap 16 mmol/L (10-20); BUN (Urea Nitrogen) 32 mg/dL (8.9-20.6); Bilirubin, Total 1.4 mg/dL (0.3-1.2); Calc. Creatinine Clearance 0 mL/min (70-130); Calcium 8.2 mg/dL (7.8-10.44); Carbon Dioxide 25 mmol/L (22-29); Chloride 97 mmol/L (98-107); Globulin 4.7 g/dL (2.4-3.5); Glucose 122 mg/dL (70-105); Potassium 4.0 mmol/L (3.5-5.1); Sodium 134 mmol/L (136-145)
[2025-03-04 02:06] LABS: CAUTI Indications for Culture Dysuria,urgency,freq; Glucose, Urine (Dipstick) Normal (Negative); Leukocyte Negative Leu/uL (Negative); Protein, Urine (Dipstick) 50 mg/dL (Neg-Trace); RBC/HPF 0-3 HPF (0-3); Specific Gravity, Urine 1.022 (1.002-1.036)
[2025-03-04 02:07] LABS: Bacteria/HPF Rare-Few HPF (None Seen); WBC/HPF 0-3 HPF (0-3)
[2025-03-04 02:08] LABS: Urine Culture Reflex No No
[2025-03-04] MEDS ORDERED: HYDROcodone/Acetaminophen 10/325 mg Tablet ONE (04:31)
[2025-03-04 07:26] LABS: Hematocrit 26.0 % (42.0-52.0); Hemoglobin 7.5 g/dL (14.0-18.0)
[2025-03-04 07:45] LABS: INR-International Normal Ratio 1.4; PTT 40.7 sec (22.9-36.1); Prothrombin Time 17.5 sec (12.0-14.7)
[2025-03-04 10:07] LABS: ALT (SGPT) 19 U/L (Less than 45); AST (SGOT) 50 U/L (11-34); Albumin 2.4 g/dL (3.1-4.5); Alkaline Phosphatase 100 U/L (40-110); Anion Gap 11 mmol/L (10-20); BUN (Urea Nitrogen) 30 mg/dL (8.9-20.6); Bilirubin, Total 1.3 mg/dL (0.3-1.2); Calc. Creatinine Clearance 0 mL/min (70-130); Calcium 8.4 mg/dL (7.8-10.44); Carbon Dioxide 27 mmol/L (22-29); Chloride 98 mmol/L (98-107); Globulin 5.2 g/dL (2.4-3.5); Glucose 97 mg/dL (70-105); Potassium 3.7 mmol/L (3.5-5.1); Sodium 132 mmol/L (136-145)
== END 2025-03-04 10:11 | disposition short-term general hospital (02) ==
LOC: ERS 20:44
DX: N17.9 Acute kidney failure, unspecified (principal); I71.40 Abdominal aortic aneurysm, without rupture, unspecified; D64.9 Anemia, unspecified; E86.0 Dehydration; E11.9 Type 2 diabetes mellitus without complications; I10 Essential (primary) hypertension; Z86.711 Personal history of pulmonary embolism; Z79.01 Long term (current) use of anticoagulants; Z79.899 Other long term (current) drug therapy; Z79.84 Long term (current) use of oral hypoglycemic drugs
CPT/HCPCS: 36415; 76770; 80053; 81001; 83605; 85014; 85018; 85025; 85610; 85730; 93005; 94660; 94760